=== PATIENT | female | born 1965 | race Caucasian/White ===

== ENCOUNTER 2022-12-31 11:57 | Inpatient (IN) | payer MEDICARE, MEDICAID, SELFPAY ==
[2022-12-31 12:08] VITALS: BP 116/91; BP 148/92; PULSE 96; PULSE 98; RESP 18; TEMP 36.4; O2SAT 96; BMI 25.8
[2022-12-31 12:42] LABS: Appearance Urine Cloudy; Color Urine Yellow; Glucose Urine UA Negative (Negative); Leukocyte Esterase Urine Large (3+) (Negative); Nitrite Urine Negative (Negative); PH 5.5 (5.0-9.0); UMIC TRIGGER UACC YES; Urine Blood Moderate (2+) (Negative); Urine Ketones Negative (Negative); Urine Protein 30 (1+) mg/dL (Neg-Trace)
--- NOTE | 2022-12-31 12:44 | ED_ITS ---
HPI - Psych General Chief Complaint: Psychiatric Symptoms Stated Complaint: DEPRESSED,NI SI,LAST DRANK ETOH TODAY PER EMS Time Seen by Provider: 12/31/22 12:03 Source: patient Mode of arrival: EMS Limitations: no limitations History of Present Illness HPI Narrative: 57 yo female hx of depression, hypothyroidism here with c/o depression, hopelessness, homeless and has been drinking. Was seen at [facility] and [facility] and states that she stayed overnight in ER then left. No SI attempts in past. Came from [place] to be with daughter who has borderline and now daughter is not talking to her. The patient then lost $912.50 from a realtor who was supposed to help her find housing but then never heard back from them. MD complaint: feels depressed, anxiety and alcohol abuse Onset (ago): week(s) Duration: intermittent History of same: Yes Relieving factors: none Exacerbating factors: alcohol Context: recent alcohol abuse and significant life stressor Associated psychiatric symptoms: depression Associated symptoms: denies other symptoms Treatments prior to arrival: none Related Data Home Medications Medication Instructions Recorded Confirmed bupropion HCl 75 mg tablet 75 mg PO BID 12/31/22 12/31/22 levothyroxine 100 mcg tablet 100 mcg PO DAILY 12/31/22 12/31/22 nicotine (polacrilex) 2 mg gum 2 mg buccal Q2H 12/31/22 12/31/22 quetiapine 100 mg tablet 200 mg PO BEDTIME 12/31/22 12/31/22 Allergies Allergy/AdvReac Type Severity Reaction Status Date / Time Unable to Assess Allergy Verified 12/31/22 12:15 Review of Systems 2 Review of Systems: Constitutional : No Fever, No Chills ENT/Mouth : No Ear Pain, No Nasal Congestion, No sore throat Eyes: No Eye Pain, No Swelling, No Redness Cardiovascular : No Chest Pain, No SOB Respiratory : No Cough, No Sputum, No Dyspnea Gastrointestinal : No Nausea, No Vomiting, No Diarrhea, No Hematochezia, No Melena Genitourinary : No Dysuria, No Urinary Frequency, No Hematuria Musculoskeletal : No Myalgias Skin : No Skin Lesions, No rash Neuro : No Weakness, No Numbness, No Paresthesias, No Dizziness, No Headache Psych : positive Anxiety, positive Depression, no SI/HI Heme/Lymph: No Lymphadenopathy Endocrine : No Polyuria, No Polydipsia All other systems reviewed and are negative PMFSH Past Medical History Attestation statement: The following information was validated with the patient. Medical History (Updated 12/31/22 @ 13:07 by Katherine Cabrera DO) Depression Social History Social History (Updated 12/31/22 @ 13:04 by Katherine Cabrera DO) Alcohol intake: current Patient Tobacco Use Status: Current someday Tobacco user Physical Exam 2 Vital Signs: Vital Signs: Last Vital Signs Temp 97.6 F 12/31/22 12:08 Pulse 96 12/31/22 12:08 Resp 18 12/31/22 12:08 BP 116/91 H 12/31/22 12:08 Pulse Ox 96 12/31/22 12:08 O2 Del Method Room Air 12/31/22 12:08 BMI result Body Mass Index 25.8 Appearance: Alert. Oriented X3. No acute distress. Tearful and anxious, ETOH odor Eyes: Pupils equal, round and reactive to light. ENT: Pharynx normal. Neck: Normal inspection. Neck supple. CVS: Normal heart rate and rhythm. Pulses normal. Respiratory: No respiratory distress. Breath sounds normal. Abdomen: Soft and nontender. Skin: Skin warm and dry. Normal skin color. Normal skin turgor. Extremities: No lower extremity edema. No calf ttp Neuro: Oriented X 3. No motor deficit. No sensory deficit. Cn 2-12 intact Course Course Course Narrative: urine contaminated will wait on culture Reevaluation(s) Reevaluation #1: Physician observation started at 134pm. Patient placed in physician observation because the patient needed more time for CARE team to assess the need for psych admission. At the time observation was started the patient's vitals were stable, patient is alert and oriented but anxious Neuro: nonfocal, CV RRR, Lungs clear Medical Decision Making Medical Decision Making MDM Narrative: 57 yo female with PMH of depression / ETOH use here with poor social situation denies any medical complaints will obtain labs and consult CARE team. Differential Diagnosis Differential Diagnoses: The differential diagnosis associated with the presentation includes depression, ETOH abuse Admission/Observation Consideration of admission/observation: Escalation of care including admission/observation considered observe until cleared by CARE team Consult Healthcare Provider Management of the patient was discussed with: Behavioral Health Provider Lab Data [facility] Lab Attestation statement: I reviewed the patient's lab results. 12/31/22 12:56 12/31/22 12:56 Labs: Lab Results 12/31/22 12/31/22 Range/Units 12:26 12:56 WBC 3.4 L (4.8-10.8) X10*3/uL RBC 3.43 L (4.20-5.50) X10*6/uL Hgb 11.5 L (12.0-16.0) g/dl Hct 34.2 L (37.0-47.0) % MCV 99.7 H (80.0-98.0) fL MCH 33.5 H (27.0-33.0) pg MCHC 33.6 (31.0-35.0) g/dl RDW 13.3 (11.0-16.0) % Plt Count 132 L (160-400) X10*3/uL MPV 10.0 (9.4-12.3) fL Immature Gran % (Auto) 0.3 (0.0-0.4) % Neut % (Auto) 50.5 (45-73) % Lymph % (Auto) 39.8 (20-40) % [place] % (Auto) 9.1 (2-11) % Eos % (Auto) 0.0 (0-4) % Baso % (Auto) 0.3 (0-2) % Lymph # (Auto) 1.4 (1.2-4.9) X10*3/uL [place] # (Auto) 0.3 (0.1-1.2) X10*3/uL Eos # (Auto) 0.0 (0.0-0.4) X10*3/uL Baso # (Auto) 0.0 (0.0-0.2) X10*3/uL Abs Immat Gran (auto) 0.01 (0.00-0.03) X10*3/uL Absolute Neuts (auto) 1.7 L (2.0-8.3) x10*3/uL Absolute Nucleated RBC 0.000 (0.0-0.012) X10*3/uL Nucleated RBC % (auto) 0.0 (0.0-0.2) /100WBC Sodium 143 (135-145) mmol/L Potassium 3.7 (3.3-5.1) mmol/L Chloride 104 (96-108) mmol/L Carbon Dioxide 25 (22-29) mmol/L Anion Gap 18 (12-20) BUN 14 (9-16) mg/dL Creatinine 0.74 (0.5-1.4) mg/dL Estim Creat Clear Calc 85.5 Estimated GFR > 60 Random Glucose 80 (60-115) mg/dL Calcium 9.9 (8.4-10.2) mg/dL Total Bilirubin 0.5 (0.0-1.0) mg/dL AST 103 H (5-31) U/L ALT 91 H (0-31) U/L Alkaline Phosphatase 84 (39-117) U/L Total Protein 8.1 H (6.5-8.0) g/dL Albumin 4.6 (3.5-5.0) g/dL Urine Color Yellow Urine Appearance Cloudy Urine pH 5.5 (5.0-9.0) Ur Specific [place] 1.010 (1.005-1.025) Urine Protein 30 (1+) H (Neg-Trace) mg/dL Urine Glucose (UA) Negative (Negative) mg/dL Urine Ketones Negative (Negative) mg/dL Urine Blood Moderate (2+) H (Negative) Urine Nitrite Negative (Negative) Ur Leukocyte Esterase Large (3+) H (Negative) Urine RBC 6-10 H (0-2) /HPF Urine WBC 21-50 H (0-5) /HPF Ur Squamous Epith Cells 11-20 (0-2) /HPF Urine Bacteria 1+ (None Seen) Hyaline Casts 6-10 (0-2) /LPF Salicylates < 5.0 L (15-30) mg/dL Urine Opiates Screen Not Detected (Not Detect) Urine Fentanyl Screen Not Detected (Not Detect) Acetaminophen < 17 (<30) mcg/mL Ur Barbiturates Screen Not Detected (Not Detect) Ur Phencyclidine Scrn Not Detected (Not Detect) Ur Amphetamines Screen Not Detected (Not Detect) U Benzodiazepines Scrn Not Detected (Not Detect) Urine Cocaine Screen Not Detected (Not Detect) U Marijuana (THC) Screen Not Detected (Not Detect) Ethyl Alcohol 190 mg/dL COVID-19 ([place]) Negative (Negative) COVID-19 Clin Com See Note Independent Historian Clinical information obtained from an independent historian. History obtained from or confirmed by: EMS Social Determinants Patient?s care significantly limited by Social Determinants of Health including: Inadequate housing, Low income, Problems related to primary support group and Unemployment Discharge Plan Discharge Clinical Impression: Alcohol abuse Depression Qualifiers: Depression Type: unspecified Qualified Code(s): F32.A - Depression, unspecified Patient Disposition: Still a Patient Prescriptions: No Action quetiapine 100 mg Tablet 200 mg PO BEDTIME levothyroxine 100 mcg Tablet 100 mcg PO DAILY bupropion HCl 75 mg Tablet 75 mg PO BID Rx Instructions: QAM and afternoon nicotine (polacrilex) 2 mg Gum 2 mg BUCCAL Q2H Interventions: [place]-Suicide Risk Severity Scale Last Done: 12/31/22 13:27
[2022-12-31 12:46] LABS: COVID-19 Test Negative (Negative); IDNOW Serial# BCCEAD1C
[2022-12-31 13:00] LABS: Bacteria Urine 1+ (None Seen); UACC Culture Trigger YES; WBC Urine 21-50 /HPF (0-5)
[2022-12-31 13:03] LABS: MANUAL DIFF FLAG NO
[2022-12-31 13:07] LABS: Amphetamine Screen Urine Not Detected (Not Detect); Barbiturates, Urine Not Detected (Not Detect); Benzodiazepines Screen Urine Not Detected (Not Detect); Cannabinoid Screen Urine Not Detected (Not Detect); Cocaine Screen Urine Not Detected (Not Detect); Fentanyl, urine Not Detected (Not Detect); Opiate Screen Urine Not Detected (Not Detect); Phencyclidine Screen Urine Not Detected (Not Detect)
[2022-12-31 13:08] LABS: Basophils Percent Auto 0.3 % (0-2); Hematocrit 34.2 % (37.0-47.0); Hemoglobin 11.5 g/dl (12.0-16.0); Imm Gran Abs Auto 0.01 X10*3/uL (0.00-0.03); Imm Gran Pct Auto 0.3 % (0.0-0.4); Lymphocytes Absolute Auto 1.4 X10*3/uL (1.2-4.9); Lymphocytes Percent Auto 39.8 % (20-40); Mean Corpuscular HGB Conc 33.6 g/dl (31.0-35.0); Mean Corpuscular Hemoglobin 33.5 pg (27.0-33.0); Mean Corpuscular Volume 99.7 fL (80.0-98.0); Monocytes Absolute Auto 0.3 X10*3/uL (0.1-1.2); Monocytes Percent Auto 9.1 % (2-11); Neutrophils Absolute Auto 1.7 x10*3/uL (2.0-8.3); Neutrophils Percent Auto 50.5 % (45-73); Platelet Count 132 X10*3/uL (160-400); Red Blood Count 3.43 X10*6/uL (4.20-5.50); Red Cell Distribution Width 13.3 % (11.0-16.0); White Blood Count 3.4 X10*3/uL (4.8-10.8)
--- NOTE | 2022-12-31 13:20 | PC.NURSE ---
Bailey was BIBA after feeling hopeless this morning in the context of ETOH and homelessness. Bailey reports she came here from [place] to help her daughter who has significant mental health struggles but her daughter is not currently speaking with her. Bailey denies a plan or intent but does endorse vague SI. Several bags and other belongings placed in locker 2. Bailey reports she hasn't taken her medication in a few days . Appetite is good.
[2022-12-31 13:27] LABS: Alanine Aminotransferase 91 U/L (0-31); Albumin Level 4.6 g/dL (3.5-5.0); Alkaline Phosphatase 84 U/L (39-117); Anion Gap 18 (12-20); Aspartate Amino Transferase 103 U/L (5-31); Bilirubin Total 0.5 mg/dL (0.0-1.0); Blood Urea Nitrogen 14 mg/dL (9-16); Calcium 9.9 mg/dL (8.4-10.2); Carbon Dioxide 25 mmol/L (22-29); Chloride 104 mmol/L (96-108); Creatinine Clr Calc Pharmacy 85.5; Estimated Glomerular Filt Rate > 60; Ethanol 190 mg/dL; Glucose Random 80 mg/dL (60-115); Potassium 3.7 mmol/L (3.3-5.1); Sodium 143 mmol/L (135-145); Total Protein 8.1 g/dL (6.5-8.0)
[2022-12-31 13:28] LABS: Acetaminophen LAB < 17 mcg/mL (<30); Salicylate < 5.0 mg/dL (15-30)
[2022-12-31 13:45] LABS: TSH reflex Free T4 0.25 uIU/mL (0.32-4.0)
[2022-12-31 14:46] LABS: Free T4 (Free Thyroxine) 1.38 ng/dL (0.71-1.85)
[2022-12-31] MEDS: Nicotine Polacrilex 2 MG GUM BUCCAL ×2 (17:28→19:39)
[2022-12-31 18:40] VITALS: BP 173/88; PULSE 107; RESP 20; TEMP 36.3; O2SAT 100
[2022-12-31] MEDS: LORazepam 1 MG TABLET 2 MG PO (19:19)
[2022-12-31] MEDS: QUEtiapine Fumarate 200 MG TABLET PO (20:15)
--- NOTE | 2023-01-01 05:23 | PC.NURSE ---
Patient slept through the night, no distress observed/reported, Ativan 2 mg PO for comfort, patient is asymptomatic of withdrawal, medication compliant, disposition per care team is section 12 inpatient bed search, VSS, labs completed/resulted, behavior non concerning, will continue to monitor.
[2023-01-01] MEDS: Levothyroxine Sodium 100 MCG TABLET PO (06:08)
[2023-01-01 06:19] VITALS: BP 130/77; PULSE 91; RESP 17; TEMP 36.6; O2SAT 98
--- NOTE | 2023-01-01 07:54 | ECG_ITS ---
Test Reason : QTC INTERVAL Blood Pressure : / mmHG Vent. Rate : 088 BPM Atrial Rate : 088 BPM P-R Int : 146 ms QRS Dur : 088 ms QT Int : 362 ms P-R-T Axes : 055 027 055 degrees QTc Int : 438 ms Normal sinus rhythm Normal ECG No previous ECGs available Referred By: Harjit Rothman Electronically Signed By:LYUDMILA JEFFRIES
[2023-01-01 09:25] VITALS: BP 121/85; PULSE 111; RESP 16; TEMP 37.1; O2SAT 99
[2023-01-01] MEDS: LORazepam 1 MG TABLET 2 MG PO (09:34)
[2023-01-01] MEDS: buPROPion HCL 75 MG TABLET PO (09:35)
--- NOTE | 2023-01-01 11:04 | MHC.CARE ---
Clinician received call back from Meg Nielsen [phone] cell/office [phone], she reports she works for [employer] and does [facility] eligibility applications. She reports application has been completed,however she needs to met with pt to have her sign paperwork. She is willing to come to inpatient unit to do this with pt once she is placed. Clinician informed her that BRIAN was signed for [employer] and faxed over and BRIAN was placed in pts chart in ED.
[2023-01-01 15:05] VITALS: BP 110/80; PULSE 120; RESP 20; TEMP 36.8; O2SAT 98
[2023-01-01 15:43] VITALS: BP 106/74; PULSE 115; RESP 20; O2SAT 97
--- NOTE | 2023-01-01 16:20 | PHA.MEDREC ---
Pharmacy Consult ? Medication Reconciliation Pharmacy has completed the medication reconciliation. Reviewed med rec done by nursing
--- NOTE | 2023-01-01 16:21 | PC.NURSE ---
Bailey has spent most of the shift in her room resting. CIWA 7 at 0930 and medicated with 2mg Lorazepam. 1500 dose of buproprion held per PT. HR in AM 111, in afternoon HR 128 on recheck thirty minutes later HR was 115. Denies any other withdrawal symptoms when assessed this afternoon. Bailey has eaten 100% of her breakfast and lunch. No behavioral concerns noted. Bailey denies SI/HI this morning but stated she may not be safe outside the hospital.
[2023-01-01] MEDS: Nicotine Polacrilex 2 MG GUM 4 MG BUCCAL ×2 (16:41→19:20)
[2023-01-01] MEDS: Gabapentin 300 MG CAPSULE PO ×2 (16:42→21:03)
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
[2023-01-01 19:50] VITALS: BP 98/58; PULSE 95; RESP 16; TEMP 36.7; O2SAT 95
[2023-01-01] MEDS: QUEtiapine Fumarate 200 MG TABLET PO (21:02)
[2023-01-02] MEDS: Levothyroxine Sodium 100 MCG TABLET PO (06:33)
[2023-01-02 07:52] LABS: Alanine Aminotransferase 62 U/L (0-31); Albumin Level 3.6 g/dL (3.5-5.0); Alkaline Phosphatase 80 U/L (39-117); Aspartate Amino Transferase 65 U/L (5-31); Bilirubin Direct 0.2 mg/dL (0.0-0.5); Bilirubin Total 0.6 mg/dL (0.0-1.0); Total Protein 6.8 g/dL (6.5-8.0)
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
[2023-01-02 10:08] VITALS: BP 105/62; PULSE 70; TEMP 36.3; O2SAT 97
[2023-01-02] MEDS: buPROPion HCL 75 MG TABLET PO ×2 (10:08→15:30)
[2023-01-02] MEDS: Gabapentin 300 MG CAPSULE PO (10:08)
[2023-01-02 20:25] VITALS: BP 124/83; PULSE 115; RESP 19; TEMP 36.2; O2SAT 96
[2023-01-02] MEDS: QUEtiapine Fumarate 200 MG TABLET PO (21:07)
[2023-01-03] MEDS: Levothyroxine Sodium 100 MCG TABLET PO (06:34)
[2023-01-03 08:30] VITALS: BP 123/68; PULSE 71; RESP 16; TEMP 36.2; O2SAT 98
--- NOTE | 2023-01-03 09:17 | HO.PSYCHPN ---
Subjective Subjective Date of Service: 01/03/23 Reason For Visit: Depression Subjective Notes: Conditional Voluntary Interim History: Reviewed in team and . Patient presents calm, cooperative, less rapid speech. Continues circumstantial and long winded in responses. She reports feeling anxious, depressed and hopeless d/t being worried about what's next after the hospital . Patient stated, I know my drinking is a problem but I need 1:1 therapy to fix the root cause of my drinking . Patient reports she does not want us speaking with her daughter. Pt reports feeling hopeful about the new medication . Medication Compliance: Yes Side effects from medications: No Attending Groups: Yes Review of Systems Constitutional: Reports as per HPI Eyes: Reports as per HPI Reports as per HPI Cardiovascular: Reports as per HPI Respiratory: Reports as per HPI Gastrointestinal: Reports as per HPI Genitourinary: Reports as per HPI Musculoskeletal: Reports as per HPI Skin/Breast: Reports as per HPI Reports as per HPI Psychiatric: Reports as per HPI Endocrine: Reports as per HPI Hematologic/Lymphatic: Reports as per HPI Allergic/Immunologic: Reports as per HPI Mental Status Exam Mental Status Exam Narrative: Pt is alert and oriented; behavior is cooperative and calm; dressed in casual attire; mood is described as depressed,anxious,hopeless ; eye contact appropriate; Speech is less rapid, and pressured; no psychomotor agitation/retardation present; thought process is organized and goal directed; Thought content is circumstantial; otherwise pertinent to relevant topics and without any delusional content, paranoid ideations or grandiosity; denies SI/HI. There is no evidence of perceptual disturbance. Patients insight and judgment are poor. Diagnostics Vital Signs (24Hr): Vital Signs - 24 hr 01/02/23 10:08 01/02/23 20:25 Temperature 97.3 F 97.2 F Pulse Rate 70 115 H Respiratory Rate 19 Blood Pressure 105/62 124/83 Pulse Oximetry 97 96 Oxygen Delivery Method Room Air Room Air BMI result Body Mass Index 25.8 Labs 12/31/22 12:56 12/31/22 12:56 Labs: Laboratory Results - last 48 hr 01/02/23 07:16 Hold Purple Top SEE NOTE Total Bilirubin 0.6 Direct Bilirubin 0.2 AST 65 H ALT 62 H Alkaline Phosphatase 80 Total Protein 6.8 Albumin 3.6 Medications Medications Current Medications Acetaminophen (Acetaminophen 325 Mg Tablet) 650 mg PO Q6H PRN PRN Reason: Headache/Pain Mild Scale (1-3) Al Hydroxide/Mg Hydroxide (Magnesium Hydrox/Alum Hydrox 30 Ml Oral.Susp) 30 ml PO Q6H PRN PRN Reason: Heartburn/Nausea Cariprazine (Cariprazine Hcl 1.5 Mg Capsule) 1.5 mg PO DAILY [facility] Last Admin: 01/03/23 08:40 Dose: 1.5 mg Gabapentin (Gabapentin 300 Mg Capsule) 300 mg PO TID [facility] Last Admin: 01/03/23 08:40 Dose: 300 mg Levothyroxine Sodium (Levothyroxine Sodium 100 Mcg Tablet) 100 mcg PO DAILY@0600 [facility] Last Admin: 01/03/23 06:34 Dose: 100 mcg Lorazepam (Lorazepam 1 Mg Tablet) 1 mg PO Q2H PRN PRN Reason: CIWA 6-10 Lorazepam (Lorazepam 1 Mg Tablet) 2 mg PO Q2H PRN PRN Reason: CIWA 11 and above Magnesium Hydroxide (Milk Of Magnesia 30 Ml Oral.Susp) 30 ml PO DAILY PRN PRN Reason: Constipation Nicotine Polacrilex (Nicotine Polacrilex 2 Mg Gum) 4 mg BUCCAL Q2H PRN PRN Reason: Nicotine Cravings Last Admin: 01/03/23 09:07 Dose: 4 mg Quetiapine Fumarate (Quetiapine Fumarate 200 Mg Tablet) 200 mg PO BEDTIME [facility] Last Admin: 01/02/23 21:07 Dose: 200 mg Quetiapine Fumarate (Quetiapine Fumarate 25 Mg Tablet) 25 mg PO BID PRN PRN Reason: Anxiety Trazodone HCl (Trazodone Hcl 50 Mg Tablet) 50 mg PO BEDTIME MRX1 PRN PRN Reason: Insomnia Last Admin: 01/02/23 23:28 Dose: 50 mg Allergies Allergies Allergy/AdvReac Type Severity Reaction Status Date / Time No Known Allergies Allergy Verified 12/31/22 18:03 Assessment & Plan Assessment & Plan (1) Bipolar 1 disorder: Status: Acute Code(s): F31.9 - Bipolar disorder, unspecified (2) PTSD (post-traumatic stress disorder): Status: Acute Code(s): F43.10 - Post-traumatic stress disorder, unspecified (3) Alcohol abuse: Status: Acute Code(s): F10.10 - Alcohol abuse, uncomplicated Plan Patient is a 57 year old female with hx of Bipolar d/p, PTSD and ETOH abuse who arrived via EMS to [facility] [place] d/t passive suicidal ideation secondary to increased depressive symptoms from homelessness and alcohol use. Plan: CV 15 minute safety checks CIWA DC Wellbutrin Start: Vraylar 1.5mg PO daily Seroquel 25mg PO BID PRN Obtain collateral Referral to outpatient substance abuse program? Referral to domestic violence program? 01/03: Patient presents calm, cooperative, less rapid speech. Continues circumstantial and long winded in responses. She reports feeling anxious, depressed and hopeless d/t being worried about what's next after the hospital . Patient stated, I know my drinking is a problem but I need 1:1 therapy to fix the root cause of my drinking . Patient reports she does not want us speaking with her daughter. Pt reports feeling hopeful about the new medication . Vraylar increased to 3mg PO daily. Patient educated on: diagnosis, medication risk/benefits, substance abuse and therapeutic strategies Informed Consent: understands Reason for continued inpatient stay Substantial Risk for: med/psych decompensation Time Spent With Patient Time: Total time managing care of this patient today _30___ minutes.
[2023-01-03 19:25] VITALS: BP 118/75; PULSE 94; RESP 18; TEMP 36.4; O2SAT 95
[2023-01-03] MEDS: QUEtiapine Fumarate 200 MG TABLET PO (21:13)
--- NOTE | 2023-01-03 23:07 | PC.NURSE ---
This nurse informed Maura Kilgore of urine abnormal results. Patient not reporting any discomfort at this time. Urine culture is pending.
--- NOTE | 2023-01-04 05:09 | PC.NURSE ---
At 0400, patient resting in bed. No signs of sweating or distress. RR-14. Nurse did not wake patient for full CIWA assessment as patient benoit not scored in last 24 hours.
[2023-01-04] MEDS: Levothyroxine Sodium 100 MCG TABLET PO (06:31)
[2023-01-04 08:00] VITALS: BP 131/81; PULSE 100; RESP 16; TEMP 36.4; O2SAT 98
--- NOTE | 2023-01-04 12:18 | HO.PSYCHPN ---
Subjective Subjective Date of Service: 01/04/23 Reason For Visit: Depression Interim History: Reviewed with RN. Reports doing well other than reporting dry skin on the right side of her neck. She has been cooperative and pleasant on the unit. She is worried about her upcoming life situation.She is tolerating Vraylar well without side effects. Denies SI/HI/AVH. Review of Systems Review of Systems Constitutional : No Fever, No Chills ENT/Mouth : No Ear Pain, No Nasal Congestion, No sore throat Eyes: No Eye Pain, No Swelling, No Redness Cardiovascular : No Chest Pain, No SOB Respiratory : No Cough, No Sputum, No Dyspnea Gastrointestinal : No Nausea, No Vomiting, No Diarrhea, No Hematochezia, No Melena Genitourinary : No Dysuria, No Urinary Frequency, No Hematuria Musculoskeletal : No Myalgias Skin : No Skin Lesions, No rash Neuro : No Weakness, No Numbness, No Paresthesias, No Dizziness, No Headache Psych : positive Anxiety, positive Depression, no SI/HI Heme/Lymph: No Lymphadenopathy Endocrine : No Polyuria, No Polydipsia All other systems reviewed and are negative Constitutional: Reports as per HPI Eyes: Reports as per HPI Reports as per HPI Cardiovascular: Reports as per HPI Respiratory: Reports as per HPI Gastrointestinal: Reports as per HPI Musculoskeletal: Reports as per HPI Skin/Breast: Reports as per HPI Reports as per HPI Psychiatric: Reports as per HPI Endocrine: Reports as per HPI Hematologic/Lymphatic: Reports as per HPI Allergic/Immunologic: Reports as per HPI Mental Status Exam Mental Status Exam Narrative: Pt is alert and oriented; behavior is cooperative and calm; dressed in casual attire; mood is described as depressed,anxious,hopeless ; eye contact appropriate; Speech is less rapid, and pressured; no psychomotor agitation/retardation present; thought process is organized and goal directed; Thought content is circumstantial; otherwise pertinent to relevant topics and without any delusional content, paranoid ideations or grandiosity; denies SI/HI. There is no evidence of perceptual disturbance. Patients insight and judgment are poor. Diagnostics Vital Signs (24Hr): Vital Signs - 24 hr 01/03/23 19:25 01/04/23 08:00 Temperature 97.6 F 97.5 F Pulse Rate 94 100 Respiratory Rate 18 16 Blood Pressure 118/75 131/81 Pulse Oximetry 95 98 Oxygen Delivery Method Room Air Room Air BMI result Body Mass Index 25.8 Labs 12/31/22 12:56 12/31/22 12:56 Labs: Laboratory Results - last 48 hr 01/03/23 20:19 Urine Color Yellow Urine Appearance Clear Urine pH 8.0 Ur Specific [place] 1.010 Urine Protein Negative Urine Glucose (UA) Negative Urine Ketones Negative Urine Blood Negative Urine Nitrite Negative Ur Leukocyte Esterase Moderate (2+) H Urine RBC 0-2 Urine WBC 6-10 H Ur Squamous Epith Cells 0-2 Urine Bacteria None Seen Hyaline Casts 0-2 Medications Medications Current Medications Acetaminophen (Acetaminophen 325 Mg Tablet) 650 mg PO Q6H PRN PRN Reason: Headache/Pain Mild Scale (1-3) Al Hydroxide/Mg Hydroxide (Magnesium Hydrox/Alum Hydrox 30 Ml Oral.Susp) 30 ml PO Q6H PRN PRN Reason: Heartburn/Nausea Cariprazine (Cariprazine Hcl 3 Mg Capsule) 3 mg PO DAILY [facility] Last Admin: 01/04/23 08:44 Dose: 3 mg Gabapentin (Gabapentin 300 Mg Capsule) 300 mg PO TID [facility] Last Admin: 01/04/23 08:44 Dose: 300 mg Levothyroxine Sodium (Levothyroxine Sodium 100 Mcg Tablet) 100 mcg PO DAILY@0600 [facility] Last Admin: 01/04/23 06:31 Dose: 100 mcg Lorazepam (Lorazepam 1 Mg Tablet) 1 mg PO Q2H PRN PRN Reason: CIWA 6-10 Lorazepam (Lorazepam 1 Mg Tablet) 2 mg PO Q2H PRN PRN Reason: CIWA 11 and above Magnesium Hydroxide (Milk Of Magnesia 30 Ml Oral.Susp) 30 ml PO DAILY PRN PRN Reason: Constipation Nicotine Polacrilex (Nicotine Polacrilex 2 Mg Gum) 4 mg BUCCAL Q2H PRN PRN Reason: Nicotine Cravings Last Admin: 01/04/23 09:16 Dose: 4 mg Quetiapine Fumarate (Quetiapine Fumarate 200 Mg Tablet) 200 mg PO BEDTIME [facility] Last Admin: 01/03/23 21:13 Dose: 200 mg Quetiapine Fumarate (Quetiapine Fumarate 25 Mg Tablet) 25 mg PO BID PRN PRN Reason: Anxiety Trazodone HCl (Trazodone Hcl 50 Mg Tablet) 50 mg PO BEDTIME MRX1 PRN PRN Reason: Insomnia Last Admin: 01/02/23 23:28 Dose: 50 mg Allergies Allergies Allergy/AdvReac Type Severity Reaction Status Date / Time No Known Allergies Allergy Verified 12/31/22 18:03 Assessment & Plan Assessment & Plan (1) Bipolar 1 disorder: Status: Acute Code(s): F31.9 - Bipolar disorder, unspecified (2) PTSD (post-traumatic stress disorder): Status: Acute Code(s): F43.10 - Post-traumatic stress disorder, unspecified (3) Alcohol abuse: Status: Acute Code(s): F10.10 - Alcohol abuse, uncomplicated Plan Patient is a 57 year old female with hx of Bipolar d/p, PTSD and ETOH abuse who arrived via EMS to [facility] [place] ER d/t passive suicidal ideation secondary to increased depressive symptoms from homelessness and alcohol use. Plan: CV 15 minute safety checks CIWA DC Wellbutrin Start: Vraylar 1.5mg PO daily Seroquel 25mg PO BID PRN Obtain collateral Referral to outpatient substance abuse program? Referral to domestic violence program? 01/03: Patient presents calm, cooperative, less rapid speech. Continues circumstantial and long winded in responses. She reports feeling anxious, depressed and hopeless d/t being worried about what's next after the hospital . Patient stated, I know my drinking is a problem but I need 1:1 therapy to fix the root cause of my drinking . Patient reports she does not want us speaking with her daughter. Pt reports feeling hopeful about the new medication . Vraylar increased to 3mg PO daily. 01/04: Continue current treatment plan. Reason for continued inpatient stay Substantial Risk for: harm to self, inability to function and rapid decompensation Time Spent With Patient Time: Total time managing care of this patient today ____ minutes.
[2023-01-04 19:40] VITALS: BP 145/84; PULSE 96; RESP 18; TEMP 36.3; O2SAT 100
[2023-01-04] MEDS: QUEtiapine Fumarate 200 MG TABLET PO (21:43)
--- NOTE | 2023-01-05 00:04 | PC.NURSE ---
Bailey is currently sleeping. No signs of withdrawal noted. No fidget movements or sweating observed. RR-14 Did not wake patient for full assessment as patient has not scored in last 36 hours.
--- NOTE | 2023-01-05 04:20 | PC.NURSE ---
At 0400, Bailey was asleep with no visible signs of distress. RR-14. Nurse did not wake patient for full CIWA assessment. Patient has not been scoring over the past 36 hours.
[2023-01-05 06:00] VITALS: BP 120/84; PULSE 121; RESP 16; TEMP 36.2; O2SAT 99
[2023-01-05] MEDS: Levothyroxine Sodium 100 MCG TABLET PO (06:31)
--- NOTE | 2023-01-05 19:09 | HO.PSYCHPN ---
Subjective Subjective Date of Service: 01/05/23 Reason For Visit: Depression Interim History: Reviewed with RN. She reported she had some slurring this morning but resolved on it's own. She denied any weakness, numbness, vision problems, headaches. When seen by this examiner she had no symptoms. Discussed lowering her Vraylar to 1.5 mg in case this was a side effect. She has not been scoring on her CIWA. She denies any withdrawals. She was pleasant, cooperative, socializing with peers. She is visible on the unit. Denies SI/HI/AVH. Review of Systems Review of Systems Constitutional : No Fever, No Chills ENT/Mouth : No Ear Pain, No Nasal Congestion, No sore throat Eyes: No Eye Pain, No Swelling, No Redness Cardiovascular : No Chest Pain, No SOB Respiratory : No Cough, No Sputum, No Dyspnea Gastrointestinal : No Nausea, No Vomiting, No Diarrhea, No Hematochezia, No Melena Genitourinary : No Dysuria, No Urinary Frequency, No Hematuria Musculoskeletal : No Myalgias Skin : No Skin Lesions, No rash Neuro : No Weakness, No Numbness, No Paresthesias, No Dizziness, No Headache Psych : positive Anxiety, positive Depression, no SI/HI Heme/Lymph: No Lymphadenopathy Endocrine : No Polyuria, No Polydipsia All other systems reviewed and are negative Constitutional: Reports as per HPI Eyes: Reports as per HPI Reports as per HPI Cardiovascular: Reports as per HPI Respiratory: Reports as per HPI Gastrointestinal: Reports as per HPI Musculoskeletal: Reports as per HPI Skin/Breast: Reports as per HPI Reports as per HPI Psychiatric: Reports as per HPI Endocrine: Reports as per HPI Hematologic/Lymphatic: Reports as per HPI Allergic/Immunologic: Reports as per HPI Mental Status Exam Mental Status Exam Narrative: Pt is alert and oriented; behavior is cooperative and calm; dressed in casual attire; mood is described as depressed,anxious,hopeless ; eye contact appropriate; Speech is less rapid, and pressured; no psychomotor agitation/retardation present; thought process is organized and goal directed; Thought content is circumstantial; otherwise pertinent to relevant topics and without any delusional content, paranoid ideations or grandiosity; denies SI/HI. There is no evidence of perceptual disturbance. Patients insight and judgment are poor. Diagnostics Vital Signs (24Hr): Vital Signs - 24 hr 01/04/23 19:40 10/08/23 06:00 Temperature 97.4 F 97.2 F Pulse Rate 96 121 H Respiratory Rate 18 16 Blood Pressure 145/84 H 120/84 Pulse Oximetry 100 99 Oxygen Delivery Method Room Air Room Air BMI result Body Mass Index 25.8 Labs 12/31/22 12:56 12/31/22 12:56 Labs: Laboratory Results - last 48 hr 01/03/23 20:19 Urine Color Yellow Urine Appearance Clear Urine pH 8.0 Ur Specific [place] 1.010 Urine Protein Negative Urine Glucose (UA) Negative Urine Ketones Negative Urine Blood Negative Urine Nitrite Negative Ur Leukocyte Esterase Moderate (2+) H Urine RBC 0-2 Urine WBC 6-10 H Ur Squamous Epith Cells 0-2 Urine Bacteria None Seen Hyaline Casts 0-2 Medications Medications Current Medications Acetaminophen (Acetaminophen 325 Mg Tablet) 650 mg PO Q6H PRN PRN Reason: Headache/Pain Mild Scale (1-3) Al Hydroxide/Mg Hydroxide (Magnesium Hydrox/Alum Hydrox 30 Ml Oral.Susp) 30 ml PO Q6H PRN PRN Reason: Heartburn/Nausea Cariprazine (Cariprazine Hcl 1.5 Mg Capsule) 1.5 mg PO DAILY [facility] Gabapentin (Gabapentin 300 Mg Capsule) 300 mg PO TID [facility] Last Admin: 01/05/23 14:09 Dose: 300 mg Levothyroxine Sodium (Levothyroxine Sodium 100 Mcg Tablet) 100 mcg PO DAILY@0600 [facility] Last Admin: 01/05/23 06:31 Dose: 100 mcg Lorazepam (Lorazepam 1 Mg Tablet) 1 mg PO Q2H PRN PRN Reason: CIWA 6-10 Lorazepam (Lorazepam 1 Mg Tablet) 2 mg PO Q2H PRN PRN Reason: CIWA 11 and above Magnesium Hydroxide (Milk Of Magnesia 30 Ml Oral.Susp) 30 ml PO DAILY PRN PRN Reason: Constipation Nicotine Polacrilex (Nicotine Polacrilex 2 Mg Gum) 4 mg BUCCAL Q2H PRN PRN Reason: Nicotine Cravings Last Admin: 01/05/23 19:00 Dose: 4 mg Quetiapine Fumarate (Quetiapine Fumarate 200 Mg Tablet) 200 mg PO BEDTIME [facility] Last Admin: 01/04/23 21:43 Dose: 200 mg Quetiapine Fumarate (Quetiapine Fumarate 25 Mg Tablet) 25 mg PO BID PRN PRN Reason: Anxiety Trazodone HCl (Trazodone Hcl 50 Mg Tablet) 50 mg PO BEDTIME MRX1 PRN PRN Reason: Insomnia Last Admin: 01/02/23 23:28 Dose: 50 mg Allergies Allergies Allergy/AdvReac Type Severity Reaction Status Date / Time No Known Allergies Allergy Verified 12/31/22 18:03 Assessment & Plan Assessment & Plan (1) Bipolar 1 disorder: Status: Acute Code(s): F31.9 - Bipolar disorder, unspecified (2) PTSD (post-traumatic stress disorder): Status: Acute Code(s): F43.10 - Post-traumatic stress disorder, unspecified (3) Alcohol abuse: Status: Acute Code(s): F10.10 - Alcohol abuse, uncomplicated Plan Patient is a 57 year old female with hx of Bipolar d/p, PTSD and ETOH abuse who arrived [place] EMS [place] [facility] d/t passive suicidal ideation secondary to increased depressive symptoms from homelessness and alcohol use. Plan: CV 15 minute safety checks CIWA DC Wellbutrin Start: Vraylar 1.5mg PO daily Seroquel 25mg PO BID PRN Obtain collateral Referral to outpatient substance abuse program? Referral to domestic violence program? 01/03: Patient presents calm, cooperative, less rapid speech. Continues circumstantial and long winded in responses. She reports feeling anxious, depressed and hopeless d/t being worried about what's next after the hospital . Patient stated, I know my drinking is a problem but I need 1:1 therapy to fix the root cause of my drinking . Patient reports she does not want us speaking with her daughter. Pt reports feeling hopeful about the new medication . Vraylar increased to 3mg PO daily. 01/04: Continue current treatment plan. 01/05: Lower Vraylar to 1.5 mg daily. DC CIWA. Reason for continued inpatient stay Substantial Risk for: inability to function and rapid decompensation Time Spent With Patient Time: Total time managing care of this patient today ____ minutes.
[2023-01-05 19:40] VITALS: BP 131/85; PULSE 113; RESP 16; TEMP 36.4; O2SAT 100
[2023-01-05] MEDS: QUEtiapine Fumarate 200 MG TABLET PO (20:58)
[2023-01-06 07:47] VITALS: BP 109/71; PULSE 91; O2SAT 99
--- NOTE | 2023-01-06 11:43 | HO.PSYCHPN ---
Subjective Subjective Date of Service: 01/06/23 Reason For Visit: Depression Subjective Notes: Conditional Voluntary Interim History: Patient was seen and discussed in rounds today. Records and plans were reviewed. She has been social, more organized. She is medication compliant. No anxiety or depression. Several questions about Vraylar discussed. Questions about ECT discussed. She is requesting to go back on Claritin which was ordered. She also states that she was on Lipitor prior to coming here and 10 mg will be prescribed. Medication Compliance: Yes Side effects from medications: No Attending Groups: Yes Review of Systems Review of Systems No neurological signs and symptoms Yes all other systems are reviewed and are negative Mental Status Exam Mental Status Exam Narrative: In today's visit she is alert, oriented and pleasant. Normal speech (is not slurred clothes), good eye contact. Affect is appropriate and constricted. No signs of psychosis. No SI. Cognitively intact. Judgment is intact Diagnostics Vital Signs (24Hr): Vital Signs - 24 hr 01/05/23 19:40 01/06/23 07:47 Temperature 97.5 F Pulse Rate 113 H 91 Respiratory Rate 16 Blood Pressure 131/85 109/71 Pulse Oximetry 100 99 Oxygen Delivery Method Room Air Room Air BMI result Body Mass Index 25.8 Labs 12/31/22 12:56 12/31/22 12:56 Medications Medications Current Medications Acetaminophen (Acetaminophen 325 Mg Tablet) 650 mg PO Q6H PRN PRN Reason: Headache/Pain Mild Scale (1-3) Al Hydroxide/Mg Hydroxide (Magnesium Hydrox/Alum Hydrox 30 Ml Oral.Susp) 30 ml PO Q6H PRN PRN Reason: Heartburn/Nausea Cariprazine (Cariprazine Hcl 1.5 Mg Capsule) 1.5 mg PO DAILY [facility] Last Admin: 01/06/23 08:42 Dose: 1.5 mg Gabapentin (Gabapentin 300 Mg Capsule) 300 mg PO TID [facility] Last Admin: 01/06/23 08:42 Dose: 300 mg Levothyroxine Sodium (Levothyroxine Sodium 100 Mcg Tablet) 100 mcg PO DAILY@0600 [facility] Last Admin: 01/06/23 06:24 Dose: 100 mcg Lorazepam (Lorazepam 1 Mg Tablet) 1 mg PO Q2H PRN PRN Reason: CIWA 6-10 Lorazepam (Lorazepam 1 Mg Tablet) 2 mg PO Q2H PRN PRN Reason: CIWA 11 and above Magnesium Hydroxide (Milk Of Magnesia 30 Ml Oral.Susp) 30 ml PO DAILY PRN PRN Reason: Constipation Nicotine Polacrilex (Nicotine Polacrilex 2 Mg Gum) 4 mg BUCCAL Q2H PRN PRN Reason: Nicotine Cravings Last Admin: 01/06/23 09:25 Dose: 4 mg Quetiapine Fumarate (Quetiapine Fumarate 200 Mg Tablet) 200 mg PO BEDTIME [facility] Last Admin: 01/05/23 20:58 Dose: 200 mg Quetiapine Fumarate (Quetiapine Fumarate 25 Mg Tablet) 25 mg PO BID PRN PRN Reason: Anxiety Trazodone HCl (Trazodone Hcl 50 Mg Tablet) 50 mg PO BEDTIME MRX1 PRN PRN Reason: Insomnia Last Admin: 01/02/23 23:28 Dose: 50 mg Allergies Allergies Allergy/AdvReac Type Severity Reaction Status Date / Time No Known Allergies Allergy Verified 12/31/22 18:03 Assessment & Plan Assessment & Plan (1) Bipolar 1 disorder: Status: Acute Code(s): F31.9 - Bipolar disorder, unspecified (2) PTSD (post-traumatic stress disorder): Status: Acute Code(s): F43.10 - Post-traumatic stress disorder, unspecified (3) Alcohol abuse: Status: Acute Code(s): F10.10 - Alcohol abuse, uncomplicated Plan Patient is a 57 year old female with hx of Bipolar d/p, PTSD and ETOH abuse who arrived via EMS to [facility] [place] ER d/t passive suicidal ideation secondary to increased depressive symptoms from homelessness and alcohol use. Plan: CV 15 minute safety checks CIWA DC Wellbutrin Start: Vraylar 1.5mg PO daily Seroquel 25mg PO BID PRN Obtain collateral Referral to outpatient substance abuse program? Referral to domestic violence program? 01/03: Patient presents calm, cooperative, less rapid speech. Continues circumstantial and long winded in responses. She reports feeling anxious, depressed and hopeless d/t being worried about what's next after the hospital . Patient stated, I know my drinking is a problem but I need 1:1 therapy to fix the root cause of my drinking . Patient reports she does not want us speaking with her daughter. Pt reports feeling hopeful about the new medication . Vraylar increased to 3mg PO daily. 01/04: Continue current treatment plan. 01/05: Lower Vraylar to 1.5 mg daily. MILAGRO ARIAS. 01/06: Continue current regimen and plans. Patient educated on: medication risk/benefits Reason for continued inpatient stay Substantial Risk for: med/psych decompensation Time Spent With Patient Time: Total time managing care of this patient today ____ minutes.
[2023-01-06 19:08] VITALS: BP 151/97; PULSE 110; RESP 18; TEMP 36.3; O2SAT 99
[2023-01-07 07:43] VITALS: BP 137/76; PULSE 94; RESP 17; TEMP 36.3; O2SAT 98
--- NOTE | 2023-01-07 09:34 | HO.PSYCHPN ---
Subjective Subjective Date of Service: 01/07/23 Reason For Visit: Depression Subjective Notes: Conditional Voluntary Interim History: Reviewed in team and . Patient reports feeling better today. Patient stated, no other meds have worked but I feel like the Vrylar is helping . Patient presents with rapid and pressured speech and circumstantial thought content. Pt stated, I hate that if I dance, sing or talk people think I'm hypomanic but maybe the medication is helping me feel less depressed and I'm in a better environment . Patient reports she usually have no one to talk to and now that I do, I want to make sure I get everything out . Patient states she would still like to go to a program after being hospitalized. Denies SI/HI/VH/AH. Medication Compliance: Yes Side effects from medications: No Attending Groups: Yes Review of Systems Constitutional: Reports as per HPI Eyes: Reports as per HPI Reports as per HPI Cardiovascular: Reports as per HPI Respiratory: Reports as per HPI Gastrointestinal: Reports as per HPI Genitourinary: Reports as per HPI Musculoskeletal: Reports as per HPI Skin/Breast: Reports as per HPI Reports as per HPI Psychiatric: Reports as per HPI Endocrine: Reports as per HPI Hematologic/Lymphatic: Reports as per HPI Allergic/Immunologic: Reports as per HPI Mental Status Exam Mental Status Exam Narrative: Pt is alert and oriented; behavior is cooperative, friendly and calm; dressed in casual attire; mood is described as better ; eye contact appropriate; Speech is rapid rate, and pressured; no psychomotor agitation/retardation present; thought process is organized; Thought content is circumstantial; otherwise pertinent to relevant topics and without any delusional content, paranoid ideations or grandiosity; denies SI/HI. There is no evidence of perceptual disturbance. Patients insight and judgment are poor but improving. Diagnostics Vital Signs (24Hr): Vital Signs - 24 hr 01/06/23 19:08 01/07/23 07:43 Temperature 97.4 F 97.4 F Pulse Rate 110 H 94 Respiratory Rate 18 17 Blood Pressure 151/97 H 137/76 Pulse Oximetry 99 98 Oxygen Delivery Method Room Air Room Air BMI result Body Mass Index 25.8 Labs 12/31/22 12:56 12/31/22 12:56 Medications Medications Current Medications Acetaminophen (Acetaminophen 325 Mg Tablet) 650 mg PO Q6H PRN PRN Reason: Headache/Pain Mild Scale (1-3) Al Hydroxide/Mg Hydroxide (Magnesium Hydrox/Alum Hydrox 30 Ml Oral.Susp) 30 ml PO Q6H PRN PRN Reason: Heartburn/Nausea Atorvastatin Calcium (Atorvastatin Calcium 10 Mg Tablet) 10 mg PO BEDTIME [facility] Last Admin: 01/06/23 23:04 Dose: 10 mg Cariprazine (Cariprazine Hcl 1.5 Mg Capsule) 1.5 mg PO DAILY [facility] Last Admin: 01/07/23 08:21 Dose: 1.5 mg Gabapentin (Gabapentin 300 Mg Capsule) 300 mg PO TID [facility] Last Admin: 01/07/23 08:21 Dose: 300 mg Levothyroxine Sodium (Levothyroxine Sodium 100 Mcg Tablet) 100 mcg PO DAILY@0600 [facility] Last Admin: 01/07/23 05:06 Dose: 100 mcg Loratadine (Loratadine 10 Mg Tablet) 10 mg PO DAILY [facility] Last Admin: 01/07/23 08:21 Dose: 10 mg Magnesium Hydroxide (Milk Of Magnesia 30 Ml Oral.Susp) 30 ml PO DAILY PRN PRN Reason: Constipation Nicotine Polacrilex (Nicotine Polacrilex 2 Mg Gum) 4 mg BUCCAL Q2H PRN PRN Reason: Nicotine Cravings Last Admin: 01/07/23 09:27 Dose: 4 mg Quetiapine Fumarate (Quetiapine Fumarate 200 Mg Tablet) 200 mg PO BEDTIME [facility] Last Admin: 01/06/23 23:04 Dose: 200 mg Quetiapine Fumarate (Quetiapine Fumarate 25 Mg Tablet) 25 mg PO BID PRN PRN Reason: Anxiety Trazodone HCl (Trazodone Hcl 50 Mg Tablet) 50 mg PO BEDTIME MRX1 PRN PRN Reason: Insomnia Last Admin: 01/02/23 23:28 Dose: 50 mg Allergies Allergies Allergy/AdvReac Type Severity Reaction Status Date / Time No Known Allergies Allergy Verified 12/31/22 18:03 Assessment & Plan Assessment & Plan (1) Bipolar 1 disorder: Status: Acute Code(s): F31.9 - Bipolar disorder, unspecified (2) PTSD (post-traumatic stress disorder): Status: Acute Code(s): F43.10 - Post-traumatic stress disorder, unspecified (3) Alcohol abuse: Status: Acute Code(s): F10.10 - Alcohol abuse, uncomplicated Plan Patient is a 57 year old female with hx of Bipolar d/p, PTSD and ETOH abuse who arrived via EMS to [facility] d/t passive suicidal ideation secondary to increased depressive symptoms from homelessness and alcohol use. Plan: CV 15 minute safety checks [facility]WA [place] Wellbutrin Start: Vraylar 1.5mg PO daily Seroquel 25mg PO BID PRN Obtain collateral Referral to outpatient substance abuse program? Referral to domestic violence program? 01/03: Patient presents calm, cooperative, less rapid speech. Continues circumstantial and long winded in responses. She reports feeling anxious, depressed and hopeless d/t being worried about what's next after the hospital . Patient stated, I know my drinking is a problem but I need 1:1 therapy to fix the root cause of my drinking . Patient reports she does not want us speaking with her daughter. Pt reports feeling hopeful about the new medication . Vraylar increased to 3mg PO daily. 01/04: Continue current treatment plan. 01/05: Lower Vraylar to 1.5 mg daily. DC JUANA. 01/06: Continue current regimen and plans. 01/07: Patient reports feeling better today. Patient stated, no other meds have worked but I feel like the Vrylar is helping . Patient presents with rapid and pressured speech and circumstantial thought content. Pt stated, I hate that if I dance, sing or talk people think I'm hypomanic but maybe the medication is helping me feel less depressed and I'm in a better environment . Patient reports she usually have no one to talk to and now that I do, I want to make sure I get everything out . Patient states she would still like to go to a program after being hospitalized. Denies SI/HI/VH/AH. Vrylar increased to 3mg PO daily. Start Cogentin 0.5mg PO BID. Patient educated on: diagnosis, medication risk/benefits, substance abuse and therapeutic strategies Informed Consent: understands and further education needed Reason for continued inpatient stay Substantial Risk for: med/psych decompensation Time Spent With Patient Time: Total time managing care of this patient today _30___ minutes.
[2023-01-07 18:50] VITALS: BP 144/84; PULSE 84; RESP 18; TEMP 36; O2SAT 98
[2023-01-08 08:40] VITALS: BP 119/77; PULSE 93; RESP 16; TEMP 36.2; O2SAT 98
--- NOTE | 2023-01-08 09:07 | HO.PSYCHPN ---
Subjective Subjective Date of Service: 01/08/23 Reason For Visit: Depression Subjective Notes: Conditional Voluntary Interim History: Reviewed in team and . Patient reports feeling better today. Patient presents less rapid and pressured; with organized thought process. Pt stated, I'm enjoying the clients and staff here but I'm trying to focus on the future now. I fully know I abused alcohol and I'm open to getting treatment and dig deeper . Pt denies any side effects from increase in Vrylar; will continue to monitor. Medication Compliance: Yes Side effects from medications: No Attending Groups: Yes Review of Systems Constitutional: Reports as per HPI Eyes: Reports as per HPI Reports as per HPI Cardiovascular: Reports as per HPI Respiratory: Reports as per HPI Gastrointestinal: Reports as per HPI Genitourinary: Reports as per HPI Musculoskeletal: Reports as per HPI Skin/Breast: Reports as per HPI Reports as per HPI Psychiatric: Reports as per HPI Endocrine: Reports as per HPI Hematologic/Lymphatic: Reports as per HPI Allergic/Immunologic: Reports as per HPI Mental Status Exam Mental Status Exam Narrative: Pt is alert and oriented; behavior is cooperative, friendly and calm; dressed in casual attire; mood is described as good ; eye contact appropriate; Speech is less rapid and pressured; no psychomotor agitation/retardation present; thought process is organized and goal directed; Thought content is on tx; otherwise pertinent to relevant topics and without any delusional content, paranoid ideations or grandiosity; denies SI/HI. There is no evidence of perceptual disturbance. Patients insight and judgment are fair.. Diagnostics Vital Signs (24Hr): Vital Signs - 24 hr 01/07/23 18:50 01/08/23 08:40 Temperature 96.8 F 97.1 F Pulse Rate 84 93 Respiratory Rate 18 16 Blood Pressure 144/84 H 119/77 Pulse Oximetry 98 98 Oxygen Delivery Method Room Air Room Air BMI result Body Mass Index 25.8 Labs 12/31/22 12:56 12/31/22 12:56 Medications Medications Current Medications Acetaminophen (Acetaminophen 325 Mg Tablet) 650 mg PO Q6H PRN PRN Reason: Headache/Pain Mild Scale (1-3) Al Hydroxide/Mg Hydroxide (Magnesium Hydrox/Alum Hydrox 30 Ml Oral.Susp) 30 ml PO Q6H PRN PRN Reason: Heartburn/Nausea Atorvastatin Calcium (Atorvastatin Calcium 10 Mg Tablet) 10 mg PO BEDTIME [facility] Last Admin: 10/10/23 22:22 Dose: 10 mg Benztropine Mesylate (Benztropine Mesylate 0.5 Mg Tablet) 0.5 mg PO BID COUNTS [facility]CLUDE 234 BEDS AT [facility] Last Admin: 01/08/23 08:35 Dose: 0.5 mg Cariprazine (Cariprazine Hcl 3 Mg Capsule) 3 mg PO DAILY COUNTS INCLUDE 234 BEDS AT THE [facility] Last Admin: 01/08/23 08:36 Dose: 3 mg Gabapentin (Gabapentin 300 Mg Capsule) 300 mg PO TID [facility]S [facility]CLUDE 234 BEDS AT THE [facility] Last Admin: 01/08/23 08:36 Dose: 300 mg Levothyroxine Sodium (Levothyroxine Sodium 100 Mcg Tablet) 100 mcg PO DAILY@0600 [facility]S [facility]CLUDE 234 BEDS AT THE [facility] Last Admin: 01/08/23 05:34 Dose: 100 mcg Loratadine (Loratadine 10 Mg Tablet) 10 mg PO DAILY COUNTS INCLUDE 234 BEDS AT THE [facility] Last Admin: 01/08/23 08:35 Dose: 10 mg Magnesium Hydroxide (Milk Of Magnesia 30 Ml Oral.Susp) 30 ml PO DAILY PRN PRN Reason: Constipation Nicotine Polacrilex (Nicotine Polacrilex 2 Mg Gum) 4 mg BUCCAL Q2H PRN PRN Reason: Nicotine Cravings Last Admin: 01/08/23 05:34 Dose: 4 mg Quetiapine Fumarate (Quetiapine Fumarate 200 Mg Tablet) 200 mg PO BEDTIME [facility]S [facility]CLUDE 234 BEDS AT [facility] Last Admin: 01/07/23 22:22 Dose: 200 mg Quetiapine Fumarate (Quetiapine Fumarate 25 Mg Tablet) 25 mg PO BID PRN PRN Reason: Anxiety Trazodone HCl (Trazodone Hcl 50 Mg Tablet) 50 mg PO BEDTIME MRX1 PRN PRN Reason: Insomnia Last Admin: 01/02/23 23:28 Dose: 50 mg Allergies Allergies Allergy/AdvReac Type Severity Reaction Status Date / Time No Known Allergies Allergy Verified 12/31/22 18:03 Assessment & Plan Assessment & Plan (1) Bipolar 1 disorder: Status: Acute Code(s): F31.9 - Bipolar disorder, unspecified (2) PTSD (post-traumatic stress disorder): Status: Acute Code(s): F43.10 - Post-traumatic stress disorder, unspecified (3) Alcohol abuse: Status: Acute Code(s): F10.10 - Alcohol abuse, uncomplicated Plan Patient is a 57 year old female with hx of Bipolar d/p, PTSD and ETOH abuse who arrived via EMS to [facility] d/t passive suicidal ideation secondary to increased depressive symptoms from homelessness and alcohol use. Plan: CV 15 minute safety checks [facility] [place] Wellbutrin Start: Vraylar 1.5mg PO daily Seroquel 25mg PO BID PRN Obtain collateral Referral to outpatient substance abuse program? Referral to domestic violence program? 01/03: Patient presents calm, cooperative, less rapid speech. Continues circumstantial and long winded in responses. She reports feeling anxious, depressed and hopeless d/t being worried about what's next after the hospital . Patient stated, I know my drinking is a problem but I need 1:1 therapy to fix the root cause of my drinking . Patient reports she does not want us speaking with her daughter. Pt reports feeling hopeful about the new medication . Vraylar increased to 3mg PO daily. 01/04: Continue current treatment plan. 01/05: Lower Vraylar to 1.5 mg daily. DC CIWA. 01/06: Continue current regimen and plans. 01/07: Patient reports feeling better today. Patient stated, no other meds have worked but I feel like the Vrylar is helping . Patient presents with rapid and pressured speech and circumstantial thought content. Pt stated, I hate that if I dance, sing or talk people think I'm hypomanic but maybe the medication is helping me feel less depressed and I'm in a better environment . Patient reports she usually have no one to talk to and now that I do, I want to make sure I get everything out . Patient states she would still like to go to a program after being hospitalized. Denies SI/HI/VH/AH. Vrylar increased to 3mg PO daily. Start Cogentin 0.5mg PO BID. 01/08: Patient reports feeling better today. Patient presents less rapid and pressured; with organized thought process. Pt stated, I'm enjoying the clients and staff here but I'm trying to focus on the future now. I fully know I abused alcohol and I'm open to getting treatment and dig deeper . Pt denies any side effects from increase in Vrylar; will continue to monitor. Patient educated on: diagnosis, medication risk/benefits, substance abuse and therapeutic strategies Informed Consent: understands Reason for continued inpatient stay Substantial Risk for: med/psych decompensation Time Spent With Patient Time: Total time managing care of this patient today _30___ minutes.
[2023-01-08] MEDS: Nicotine Polacrilex 2 MG GUM 4 MG BUCCAL ×4 (16:32→22:45)
[2023-01-08 20:24] VITALS: BP 140/63; PULSE 104; RESP 18; TEMP 36.6; O2SAT 95
[2023-01-08] MEDS: Atorvastatin Calcium 10 MG TABLET PO (22:44)
[2023-01-08] MEDS: Gabapentin 300 MG CAPSULE PO (22:44)
[2023-01-08] MEDS: Benztropine Mesylate 0.5 MG TABLET PO (22:44)
[2023-01-08] MEDS: QUEtiapine Fumarate 200 MG TABLET PO (22:45)
[2023-01-09] MEDS: Nicotine Polacrilex 2 MG GUM 4 MG BUCCAL ×7 (06:33→23:03)
[2023-01-09] MEDS: Levothyroxine Sodium 100 MCG TABLET PO (06:33)
[2023-01-09] MEDS: Cariprazine HCl 3 MG CAPSULE PO (08:04)
[2023-01-09] MEDS: Loratadine 10 MG TABLET PO (08:05)
[2023-01-09] MEDS: Gabapentin 300 MG CAPSULE PO ×3 (08:05→23:02)
[2023-01-09] MEDS: Benztropine Mesylate 0.5 MG TABLET PO ×2 (08:05→23:03)
[2023-01-09 08:35] VITALS: BP 128/84; PULSE 100; RESP 16; TEMP 36.2; O2SAT 99
--- NOTE | 2023-01-09 09:43 | P.PNPSI_ITS ---
Subjective Subjective Date of Service: 01/09/23 Reason For Visit: Depression Subjective Notes: Conditional Voluntary Interim History: Reviewed in team and . Patient reports feeling good today. Patient presents less rapid and pressured; with organized thought process. Denies any side effects from increase in Vrylar; will continue to monitor. Denies SI/HI/VH/AH. Medication Compliance: Yes Side effects from medications: No Attending Groups: Yes Review of Systems Constitutional: Reports as per HPI Eyes: Reports as per HPI Reports as per HPI Cardiovascular: Reports as per HPI Respiratory: Reports as per HPI Gastrointestinal: Reports as per HPI Genitourinary: Reports as per HPI Musculoskeletal: Reports as per HPI Skin/Breast: Reports as per HPI Reports as per HPI Psychiatric: Reports as per HPI Endocrine: Reports as per HPI Hematologic/Lymphatic: Reports as per HPI Allergic/Immunologic: Reports as per HPI Mental Status Exam Mental Status Exam Narrative: Pt is alert and oriented; behavior is cooperative, friendly and calm; dressed in casual attire; mood is described as good ; eye contact appropriate; Speech is less rapid and pressured; no psychomotor agitation/retardation present; thought process is organized and goal directed; Thought content is on tx; otherwise pertinent to relevant topics and without any delusional content, paranoid ideations or grandiosity; denies SI/HI. There is no evidence of perceptual disturbance. Patients insight and judgment are fair.. Diagnostics Vital Signs (24Hr): Vital Signs - 24 hr 01/08/23 20:24 01/09/23 08:35 Temperature 97.9 F 97.1 F Pulse Rate 104 H 100 Respiratory Rate 18 16 Blood Pressure 140/63 H 128/84 Pulse Oximetry 95 99 Oxygen Delivery Method Room Air Room Air BMI result Body Mass Index 25.8 Labs 12/31/22 12:56 12/31/22 12:56 Medications Medications Current Medications Acetaminophen (Acetaminophen 325 Mg Tablet) 650 mg PO Q6H PRN PRN Reason: Headache/Pain Mild Scale (1-3) Al Hydroxide/Mg Hydroxide (Magnesium Hydrox/Alum Hydrox 30 Ml Oral.Susp) 30 ml PO Q6H PRN PRN Reason: Heartburn/Nausea Atorvastatin Calcium (Atorvastatin Calcium 10 Mg Tablet) 10 mg PO BEDTIME [facility] Last Admin: 01/08/23 22:44 Dose: 10 mg Benztropine Mesylate (Benztropine Mesylate 0.5 Mg Tablet) 0.5 mg PO BID [facility] Last Admin: 01/09/23 08:05 Dose: 0.5 mg Cariprazine (Cariprazine Hcl 3 Mg Capsule) 3 mg PO DAILY [facility] Last Admin: 01/09/23 08:04 Dose: 3 mg Gabapentin (Gabapentin 300 Mg Capsule) 300 mg PO TID [facility] Last Admin: 01/09/23 08:05 Dose: 300 mg Levothyroxine Sodium (Levothyroxine Sodium 100 Mcg Tablet) 100 mcg PO DAILY@0600 [facility] Last Admin: 01/09/23 06:33 Dose: 100 mcg Loratadine (Loratadine 10 Mg Tablet) 10 mg PO DAILY [facility] Last Admin: 01/09/23 08:05 Dose: 10 mg Magnesium Hydroxide (Milk Of Magnesia 30 Ml Oral.Susp) 30 ml PO DAILY PRN PRN Reason: Constipation Nicotine Polacrilex (Nicotine Polacrilex 2 Mg Gum) 4 mg BUCCAL Q2H PRN PRN Reason: Nicotine Cravings Last Admin: 01/09/23 06:33 Dose: 4 mg Quetiapine Fumarate (Quetiapine Fumarate 200 Mg Tablet) 200 mg PO BEDTIME [facility] Last Admin: 01/08/23 22:45 Dose: 200 mg Quetiapine Fumarate (Quetiapine Fumarate 25 Mg Tablet) 25 mg PO BID PRN PRN Reason: Anxiety Trazodone HCl (Trazodone Hcl 50 Mg Tablet) 50 mg PO BEDTIME MRX1 PRN PRN Reason: Insomnia Last Admin: 01/02/23 23:28 Dose: 50 mg Allergies Allergies Allergy/AdvReac Type Severity Reaction Status Date / Time No Known Allergies Allergy Verified 12/31/22 18:03 Assessment & Plan Assessment & Plan (1) Bipolar 1 disorder: Status: Acute Code(s): F31.9 - Bipolar disorder, unspecified (2) PTSD (post-traumatic stress disorder): Status: Acute Code(s): F43.10 - Post-traumatic stress disorder, unspecified (3) Alcohol abuse: Status: Acute Code(s): F10.10 - Alcohol abuse, uncomplicated Plan Patient is a 57 year old female with hx of Bipolar d/p, PTSD and ETOH abuse who arrived via EMS to [facility] d/t passive suicidal ideation secondary to increased depressive symptoms from homelessness and alcohol use. Plan: CV 15 minute safety checks [facility] [place] Wellbutrin Start: Vraylar 1.5mg PO daily Seroquel 25mg PO BID PRN Obtain collateral Referral to outpatient substance abuse program? Referral to domestic violence program? 01/03: Patient presents calm, cooperative, less rapid speech. Continues circumstantial and long winded in responses. She reports feeling anxious, depressed and hopeless d/t being worried about what's next after the hospital . Patient stated, I know my drinking is a problem but I need 1:1 therapy to fix the root cause of my drinking . Patient reports she does not want us speaking with her daughter. Pt reports feeling hopeful about the new medication . Vraylar increased to 3mg PO daily. 01/04: Continue current treatment plan. 01/05: Lower Vraylar to 1.5 mg daily. DC CIWA. 01/06: Continue current regimen and plans. 01/07: Patient reports feeling better today. Patient stated, no other meds have worked but I feel like the Vrylar is helping . Patient presents with rapid and pressured speech and circumstantial thought content. Pt stated, I hate that if I dance, sing or talk people think I'm hypomanic but maybe the medication is helping me feel less depressed and I'm in a better environment . Patient reports she usually have no one to talk to and now that I do, I want to make sure I get everything out . Patient states she would still like to go to a program after being hospitalized. Denies SI/HI/VH/AH. Vrylar increased to 3mg PO daily. Start Cogentin 0.5mg PO BID. 01/08: Patient reports feeling better today. Patient presents less rapid and pressured; with organized thought process. Pt stated, I'm enjoying the clients and staff here but I'm trying to focus on the future now. I fully know I abused alcohol and I'm open to getting treatment and dig deeper . Pt denies any side effects from increase in Vrylar; will continue to monitor. 01/09: Patient reports feeling good today. Patient presents less rapid and pressured; with organized thought process. Denies any side effects from increase in Vrylar; will continue to monitor. Denies SI/HI/VH/AH. Patient educated on: diagnosis, medication risk/benefits, substance abuse and therapeutic strategies Informed Consent: understands Reason for continued inpatient stay Substantial Risk for: med/psych decompensation Time Spent With Patient Time: Total time managing care of this patient today _30___ minutes.
[2023-01-09 09:49] VITALS: BMI 24.7
[2023-01-09] MEDS: QUEtiapine Fumarate 25 MG TABLET PO (13:48)
[2023-01-09 20:16] VITALS: BP 125/77; PULSE 109; RESP 18; TEMP 36.3; O2SAT 98
[2023-01-09] MEDS: Atorvastatin Calcium 10 MG TABLET PO (23:03)
[2023-01-09] MEDS: QUEtiapine Fumarate 200 MG TABLET PO (23:03)
[2023-01-10] MEDS: Nicotine Polacrilex 2 MG GUM 4 MG BUCCAL ×7 (03:56→21:16)
[2023-01-10] MEDS: Levothyroxine Sodium 100 MCG TABLET PO (06:21)
[2023-01-10 08:00] VITALS: BP 134/95; PULSE 97; RESP 16; TEMP 36.1; O2SAT 99
[2023-01-10] MEDS: Loratadine 10 MG TABLET PO (08:08)
[2023-01-10] MEDS: Gabapentin 300 MG CAPSULE PO ×3 (08:09→22:24)
[2023-01-10] MEDS: Benztropine Mesylate 0.5 MG TABLET PO ×2 (08:09→22:24)
[2023-01-10] MEDS: Cariprazine HCl 1.5 MG CAPSULE 4.5 MG PO (08:24)
--- NOTE | 2023-01-10 09:25 | P.PNPSI_ITS ---
Subjective Subjective Date of Service: 01/10/23 Reason For Visit: Depression Subjective Notes: Conditional Voluntary Interim History: Reviewed in team and . Patient reports feeling good today. Patients speech is normal rate, not pressured today; with organized thought process. Denies any side effects from increase in Vrylar; will continue to monitor. Denies SI/HI/VH/AH. Patient is hoping to be discharged next week to a step down program. Medication Compliance: Yes Side effects from medications: No Attending Groups: Yes Review of Systems Constitutional: Reports as per HPI Eyes: Reports as per HPI Reports as per HPI Cardiovascular: Reports as per HPI Respiratory: Reports as per HPI Gastrointestinal: Reports as per HPI Genitourinary: Reports as per HPI Musculoskeletal: Reports as per HPI Skin/Breast: Reports as per HPI Reports as per HPI Psychiatric: Reports as per HPI Endocrine: Reports as per HPI Hematologic/Lymphatic: Reports as per HPI Allergic/Immunologic: Reports as per HPI Mental Status Exam Mental Status Exam Narrative: Pt is alert and oriented; behavior is cooperative, friendly and calm; dressed in casual attire; mood is described as good ; eye contact appropriate; Speech is normal rate, volume and prosody and not pressured; no psychomotor agitation/retardation present; thought process is organized and goal directed; Thought content is on tx; otherwise pertinent to relevant topics and without any delusional content, paranoid ideations or grandiosity; denies SI/HI. There is no evidence of perceptual disturbance. Patients insight and judgment are fair. Diagnostics Vital Signs (24Hr): Vital Signs - 24 hr 01/09/23 20:16 01/10/23 08:00 Temperature 97.3 F 97.0 F Pulse Rate 109 H 97 Respiratory Rate 18 16 Blood Pressure 125/77 134/95 H Pulse Oximetry 98 99 Oxygen Delivery Method Room Air Room Air BMI result Body Mass Index 24.7 Labs 12/31/22 12:56 12/31/22 12:56 Medications Medications Current Medications Acetaminophen (Acetaminophen 325 Mg Tablet) 650 mg PO Q6H PRN PRN Reason: Headache/Pain Mild Scale (1-3) Al Hydroxide/Mg Hydroxide (Magnesium Hydrox/Alum Hydrox 30 Ml Oral.Susp) 30 ml PO Q6H PRN PRN Reason: Heartburn/Nausea Atorvastatin Calcium (Atorvastatin Calcium 10 Mg Tablet) 10 mg PO BEDTIME PATI Last Admin: 01/09/23 23:03 Dose: 10 mg Benztropine Mesylate (Benztropine Mesylate 0.5 Mg Tablet) 0.5 mg PO BID [facility] Last Admin: 01/10/23 08:09 Dose: 0.5 mg Cariprazine (Cariprazine Hcl 1.5 Mg Capsule) 4.5 mg PO DAILY [facility] Last Admin: 01/10/23 08:24 Dose: 4.5 mg Gabapentin (Gabapentin 300 Mg Capsule) 300 mg PO TID [facility] Last Admin: 01/10/23 08:09 Dose: 300 mg Levothyroxine Sodium (Levothyroxine Sodium 100 Mcg Tablet) 100 mcg PO DAILY@0600 [facility] Last Admin: 01/10/23 06:21 Dose: 100 mcg Loratadine (Loratadine 10 Mg Tablet) 10 mg PO DAILY [facility] Last Admin: 01/10/23 08:08 Dose: 10 mg Magnesium Hydroxide (Milk Of Magnesia 30 Ml Oral.Susp) 30 ml PO DAILY PRN PRN Reason: Constipation Nicotine Polacrilex (Nicotine Polacrilex 2 Mg Gum) 4 mg BUCCAL Q2H PRN PRN Reason: Nicotine Cravings Last Admin: 01/10/23 09:16 Dose: 4 mg Quetiapine Fumarate (Quetiapine Fumarate 200 Mg Tablet) 200 mg PO BEDTIME [facility] Last Admin: 01/09/23 23:03 Dose: 200 mg Quetiapine Fumarate (Quetiapine Fumarate 25 Mg Tablet) 25 mg PO BID PRN PRN Reason: Anxiety Last Admin: 01/09/23 13:48 Dose: 25 mg Trazodone HCl (Trazodone Hcl 50 Mg Tablet) 50 mg PO BEDTIME MRX1 PRN PRN Reason: Insomnia Last Admin: 01/02/23 23:28 Dose: 50 mg Allergies Allergies Allergy/AdvReac Type Severity Reaction Status Date / Time No Known Allergies Allergy Verified 12/31/22 18:03 Assessment & Plan Assessment & Plan (1) Bipolar 1 disorder: Status: Acute Code(s): F31.9 - Bipolar disorder, unspecified (2) PTSD (post-traumatic stress disorder): Status: Acute Code(s): F43.10 - Post-traumatic stress disorder, unspecified (3) Alcohol abuse: Status: Acute Code(s): F10.10 - Alcohol abuse, uncomplicated Plan Patient is a 57 year old female with hx of Bipolar d/p, PTSD and ETOH abuse who [place] via EMS [place] [facility] [place]/t passive suicidal ideation secondary to increased depressive symptoms from homelessness and alcohol use. Plan: CV 15 minute safety checks CIWA DC Wellbutrin Start: Vraylar 1.5mg PO daily Seroquel 25mg PO BID PRN Obtain collateral Referral to outpatient substance abuse program? Referral to domestic violence program? 01/03: Patient presents calm, cooperative, less rapid speech. Continues circumstantial and long winded in responses. She reports feeling anxious, depressed and hopeless d/t being worried about what's next after the hospital . Patient stated, I know my drinking is a problem but I need 1:1 therapy to fix the root cause of my drinking . Patient reports she does not want us speaking with her daughter. Pt reports feeling hopeful about the new medication . Vraylar increased to 3mg PO daily. 01/04: Continue current treatment plan. 01/05: Lower Vraylar to 1.5 mg daily. DC JUANA. 01/06: Continue current regimen and plans. 01/07: Patient reports feeling better today. Patient stated, no other meds have worked but I feel like the Vrylar is helping . Patient presents with rapid and pressured speech and circumstantial thought content. Pt stated, I hate that if I dance, sing or talk people think I'm hypomanic but maybe the medication is helping me feel less depressed and I'm in a better environment . Patient reports she usually have no one to talk to and now that I do, I want to make sure I get everything out . Patient states she would still like to go to a program after being hospitalized. Denies SI/HI/VH/AH. Vrylar increased to 3mg PO daily. Start Cogentin 0.5mg PO BID. 01/08: Patient reports feeling better today. Patient presents less rapid and pressured; with organized thought process. Pt stated, I'm enjoying the clients and staff here but I'm trying to focus on the future now. I fully know I abused alcohol and I'm open to getting treatment and dig deeper . Pt denies any side effects from increase in Vrylar; will continue to monitor. 01/09: Patient reports feeling good today. Patient presents less rapid and pressured; with organized thought process. Denies any side effects from increase in Vrylar; will continue to monitor. Denies SI/HI/VH/AH. 01/10: Patient reports feeling good today. Patients speech is normal rate, not pressured today; with organized thought process. Denies any side effects from increase in Vrylar; will continue to monitor. Denies SI/HI/VH/AH. Patient is hoping to be discharged next week to a step down program. Vraylar increased to 4.5mg PO daily Patient educated on: diagnosis, medication risk/benefits, substance abuse and therapeutic strategies Informed Consent: understands Reason for continued inpatient stay Substantial Risk for: med/psych decompensation Time Spent With Patient Time: Total time managing care of this patient today _30___ minutes.
[2023-01-10 16:10] VITALS: BP 130/72; PULSE 98; RESP 20; TEMP 36.4; O2SAT 95
[2023-01-10] MEDS: Magnesium Hydrox/Alum Hydrox 30 ML ORAL.SUSP PO (16:17)
--- NOTE | 2023-01-10 18:28 | PC.NURSE ---
Large red raised rash areas bilateral inner thighs, spotty areas noted bilateral lower legs; denies itch. Sara Arauz SODDER notified of rash at present time and vomiting episode x1 lg amt orange/pack liquid. Pt reported vomiting due to drinking oj/coffee and eating sonal crackers. Staff member who witnessed vomit states this was consistent with site of vomit. Pt questioned rash due to increase in Vraylar or detergent. New orders received for Hydrocortisone cr.
[2023-01-10 20:26] VITALS: BP 134/85; PULSE 104; RESP 18; TEMP 36.3; O2SAT 94
[2023-01-10] MEDS: QUEtiapine Fumarate 200 MG TABLET PO (22:25)
[2023-01-10] MEDS: Atorvastatin Calcium 10 MG TABLET PO (22:25)
[2023-01-10] MEDS: Hydrocortisone 1 % Cream 28.35 GM TUBE 1 APPL TOPICAL (22:26)
[2023-01-11] MEDS: Nicotine Polacrilex 2 MG GUM 4 MG BUCCAL ×7 (01:55→21:11)
[2023-01-11] MEDS: Levothyroxine Sodium 100 MCG TABLET PO (06:23)
[2023-01-11 08:10] VITALS: BP 127/75; PULSE 110; RESP 20; TEMP 36.3; O2SAT 95
[2023-01-11] MEDS: Cariprazine HCl 1.5 MG CAPSULE 4.5 MG PO (08:14)
[2023-01-11] MEDS: Gabapentin 300 MG CAPSULE PO ×3 (08:14→22:15)
[2023-01-11] MEDS: Loratadine 10 MG TABLET PO (08:15)
[2023-01-11] MEDS: Benztropine Mesylate 0.5 MG TABLET PO ×2 (08:15→22:15)
[2023-01-11] MEDS: Hydrocortisone 1 % Cream 28.35 GM TUBE 1 APPL TOPICAL ×3 (08:15→22:19)
[2023-01-11] MEDS: Magnesium Hydrox/Alum Hydrox 30 ML ORAL.SUSP PO (11:54)
[2023-01-11] MEDS: QUEtiapine Fumarate 25 MG TABLET PO (16:16)
--- NOTE | 2023-01-11 16:46 | P.PNPSI_ITS ---
Subjective Subjective Date of Service: 01/11/23 Reason For Visit: Depression Medical Problems Affecting Mental Status: No Interim History: No acute management issues. Rash improving (not med related). Sleep ok. Pressured speech. Hopeful ref vraylar and mood stability/depression. Feels supported Medication Compliance: Yes Side effects from medications: No Attending Groups: Yes Review of Systems Acute medical concerns: No Review of Systems Review of Systems rash improving Mental Status Exam Mental Status Exam Narrative: Pt is alert and oriented; behavior is cooperative, friendly and calm; dressed in casual attire; mood is described as good ; eye contact appropriate; Speech is pressured slightly; no psychomotor agitation/retardation present; thought process is organized and goal directed; Thought content is on tx; otherwise pertinent to relevant topics and without any delusional content, paranoid ideations or grandiosity; denies SI/HI. There is no evidence of perceptual disturbance. Patients insight and judgment are fair. Diagnostics Vital Signs (24Hr): Vital Signs - 24 hr 01/10/23 20:26 01/11/23 08:10 Temperature 97.3 F 97.3 F Pulse Rate 104 H 110 H Respiratory Rate 18 20 Blood Pressure 134/85 127/75 Pulse Oximetry 94 95 Oxygen Delivery Method Room Air Room Air BMI result Body Mass Index 24.7 Labs 12/31/22 12:56 12/31/22 12:56 Medications Medications Current Medications Acetaminophen (Acetaminophen 325 Mg Tablet) 650 mg PO Q6H PRN PRN Reason: Headache/Pain Mild Scale (1-3) Al Hydroxide/Mg Hydroxide (Magnesium Hydrox/Alum Hydrox 30 Ml Oral.Susp) 30 ml PO Q6H PRN PRN Reason: Heartburn/Nausea Last Admin: 01/11/23 11:54 Dose: 30 ml Atorvastatin Calcium (Atorvastatin Calcium 10 Mg Tablet) 10 mg PO BEDTIME [facility] Last Admin: 01/10/23 22:25 Dose: 10 mg Benztropine Mesylate (Benztropine Mesylate 0.5 Mg Tablet) 0.5 mg PO BID [facility] Last Admin: 01/11/23 08:15 Dose: 0.5 mg Cariprazine (Cariprazine Hcl 1.5 Mg Capsule) 4.5 mg PO DAILY [facility] Last Admin: 01/11/23 08:14 Dose: 4.5 mg Gabapentin (Gabapentin 300 Mg Capsule) 300 mg PO TID [facility] Last Admin: 01/11/23 14:37 Dose: 300 mg Hydrocortisone (Hydrocortisone 1 % Cream 28.35 Gm Tube) 1 appl TOPICAL TID PATI; Protocol Last Admin: 01/11/23 14:39 Dose: 1 appl Levothyroxine Sodium (Levothyroxine Sodium 100 Mcg Tablet) 100 mcg PO DAILY@0600 [facility] Last Admin: 01/11/23 06:23 Dose: 100 mcg Loratadine (Loratadine 10 Mg Tablet) 10 mg PO DAILY [facility] Last Admin: 01/11/23 08:15 Dose: 10 mg Magnesium Hydroxide (Milk Of Magnesia 30 Ml Oral.Susp) 30 ml PO DAILY PRN PRN Reason: Constipation Nicotine Polacrilex (Nicotine Polacrilex 2 Mg Gum) 4 mg BUCCAL Q2H PRN PRN Reason: Nicotine Cravings Last Admin: 01/11/23 16:16 Dose: 4 mg Quetiapine Fumarate (Quetiapine Fumarate 200 Mg Tablet) 200 mg PO BEDTIME [facility] Last Admin: 01/10/23 22:25 Dose: 200 mg Quetiapine Fumarate (Quetiapine Fumarate 25 Mg Tablet) 25 mg PO BID PRN PRN Reason: Anxiety Last Admin: 01/11/23 16:16 Dose: 25 mg Trazodone HCl (Trazodone Hcl 50 Mg Tablet) 50 mg PO BEDTIME MRX1 PRN PRN Reason: Insomnia Last Admin: 01/02/23 23:28 Dose: 50 mg Allergies Allergies Allergy/AdvReac Type Severity Reaction Status Date / Time No Known Allergies Allergy Verified 12/31/22 18:03 Assessment & Plan Assessment & Plan (1) Bipolar 1 disorder: Status: Acute Code(s): F31.9 - Bipolar disorder, unspecified (2) PTSD (post-traumatic stress disorder): Status: Acute Code(s): F43.10 - Post-traumatic stress disorder, unspecified (3) Alcohol abuse: Status: Acute Code(s): F10.10 - Alcohol abuse, uncomplicated Plan Patient is a 57 year old female with hx of Bipolar d/p, PTSD and ETOH abuse who arrived via EMS to [facility] d/t passive suicidal ideation secondary to increased depressive symptoms from homelessness and alcohol use. Plan: CV 15 minute safety checks CIWA DC Wellbutrin Start: Vraylar 1.5mg PO daily Seroquel 25mg PO BID PRN Obtain collateral Referral to outpatient substance abuse program? Referral to domestic violence program? 01/03: Patient presents calm, cooperative, less rapid speech. Continues circumstantial and long winded in responses. She reports feeling anxious, depressed and hopeless d/t being worried about what's next after the hospital . Patient stated, I know my drinking is a problem but I need 1:1 therapy to fix the root cause of my drinking . Patient reports she does not want us speaking with her daughter. Pt reports feeling hopeful about the new medication . Vraylar increased to 3mg PO daily. 01/04: Continue current treatment plan. 01/05: Lower Vraylar to 1.5 mg daily. DC CIWA. 01/06: Continue current regimen and plans. 01/07: Patient reports feeling better today. Patient stated, no other meds have worked but I feel like the Vrylar is helping . Patient presents with rapid and pressured speech and circumstantial thought content. Pt stated, I hate that if I dance, sing or talk people think I'm hypomanic but maybe the medication is helping me feel less depressed and I'm in a better environment . Patient reports she usually have no one to talk to and now that I do, I want to make sure I get everything out . Patient states she would still like to go to a program after being hospitalized. Denies SI/HI/VH/AH. Vrylar increased to 3mg PO daily. Start Cogentin 0.5mg PO BID. 01/08: Patient reports feeling better today. Patient presents less rapid and pressured; with organized thought process. Pt stated, I'm enjoying the clients and staff here but I'm trying to focus on the future now. I fully know I abused alcohol and I'm open to getting treatment and dig deeper . Pt denies any side effects from increase in Vrylar; will continue to monitor. 01/09: Patient reports feeling good today. Patient presents less rapid and pressured; with organized thought process. Denies any side effects from increase in Vrylar; will continue to monitor. Denies SI/HI/VH/AH. 01/10: Patient reports feeling good today. Patients speech is normal rate, not pressured today; with organized thought process. Denies any side effects from increase in Vrylar; will continue to monitor. Denies SI/HI/VH/AH. Patient is hoping to be discharged next week to a step down program. Vraylar increased to 4.5mg PO daily 01/11: no changes Reason for continued inpatient stay Substantial Risk for: rapid decompensation Time Spent With Patient Time: Total time managing care of this patient today ____ minutes.
[2023-01-11 21:45] VITALS: BP 133/84; PULSE 92; RESP 18; TEMP 35.7; O2SAT 99
[2023-01-11] MEDS: Atorvastatin Calcium 10 MG TABLET PO (22:15)
[2023-01-11] MEDS: QUEtiapine Fumarate 200 MG TABLET PO (22:15)
[2023-01-12] MEDS: Nicotine Polacrilex 2 MG GUM 4 MG BUCCAL ×7 (01:46→20:59)
[2023-01-12 08:05] VITALS: BP 116/80; PULSE 116; RESP 20; TEMP 36.3; O2SAT 96
[2023-01-12] MEDS: Benztropine Mesylate 0.5 MG TABLET PO ×2 (08:24→21:42)
[2023-01-12] MEDS: Gabapentin 300 MG CAPSULE PO ×3 (08:24→21:42)
[2023-01-12] MEDS: Levothyroxine Sodium 100 MCG TABLET PO (08:24)
[2023-01-12] MEDS: Loratadine 10 MG TABLET PO (08:24)
[2023-01-12] MEDS: Hydrocortisone 1 % Cream 28.35 GM TUBE 1 APPL TOPICAL ×2 (08:25→21:41)
[2023-01-12] MEDS: Cariprazine HCl 1.5 MG CAPSULE 4.5 MG PO (08:25)
[2023-01-12] MEDS: Magnesium Hydrox/Alum Hydrox 30 ML ORAL.SUSP PO (10:41)
--- NOTE | 2023-01-12 14:54 | HO.PSYCHPN ---
Subjective Subjective Date of Service: 01/12/23 Reason For Visit: Depression Interim History: verbal outburst this morning. Slept poorly last night. Very pressured speech and tangential. Reports feeling the need to advocate for staff members and other people on the unit. Remains hopeful ref vraylar and mood stability/depression. Medication Compliance: Yes Side effects from medications: No Attending Groups: Yes Review of Systems Acute medical concerns: No Review of Systems Review of Systems rash improving Mental Status Exam Mental Status Exam Narrative: Pt is alert and oriented; behavior is cooperative, irritable, dressed in casual attire; mood is described as ok ; eye contact appropriate; Speech is pressured slightly; mild psychomotor agitation, thought process is organized and goal directed; Thought content is on tx; otherwise pertinent to relevant topics and without any delusional content, paranoid ideations or grandiosity; denies SI/HI. There is no evidence of perceptual disturbance. Patients insight and judgment are fair. Diagnostics Vital Signs (24Hr): Vital Signs - 24 hr 01/11/23 21:45 01/12/23 08:05 Temperature 96.2 F L 97.3 F Pulse Rate 92 116 H Respiratory Rate 18 20 Blood Pressure 133/84 116/80 Pulse Oximetry 99 96 Oxygen Delivery Method Room Air Room Air BMI result Body Mass Index 24.7 Labs 12/31/22 12:56 12/31/22 12:56 Medications Medications Current Medications Acetaminophen (Acetaminophen 325 Mg Tablet) 650 mg PO Q6H PRN PRN Reason: Headache/Pain Mild Scale (1-3) Al Hydroxide/Mg Hydroxide (Magnesium Hydrox/Alum Hydrox 30 Ml Oral.Susp) 30 ml PO Q6H PRN PRN Reason: Heartburn/Nausea Last Admin: 01/12/23 10:41 Dose: 30 ml Atorvastatin Calcium (Atorvastatin Calcium 10 Mg Tablet) 10 mg PO BEDTIME [facility] Last Admin: 01/11/23 22:15 Dose: 10 mg Benztropine Mesylate (Benztropine Mesylate 0.5 Mg Tablet) 0.5 mg PO BID [facility] Last Admin: 01/12/23 08:24 Dose: 0.5 mg Cariprazine (Cariprazine Hcl 1.5 Mg Capsule) 4.5 mg PO DAILY [facility] Last Admin: 01/12/23 08:25 Dose: 4.5 mg Gabapentin (Gabapentin 300 Mg Capsule) 300 mg PO TID [facility] Last Admin: 01/12/23 08:24 Dose: 300 mg Hydrocortisone (Hydrocortisone 1 % Cream 28.35 Gm Tube) 1 appl TOPICAL TID PATI; Protocol Last Admin: 01/12/23 08:25 Dose: 1 appl Levothyroxine Sodium (Levothyroxine Sodium 100 Mcg Tablet) 100 mcg PO DAILY@0600 [facility] Last Admin: 01/12/23 08:24 Dose: 100 mcg Loratadine (Loratadine 10 Mg Tablet) 10 mg PO DAILY [facility] Last Admin: 01/12/23 08:24 Dose: 10 mg Magnesium Hydroxide (Milk Of Magnesia 30 Ml Oral.Susp) 30 ml PO DAILY PRN PRN Reason: Constipation Nicotine Polacrilex (Nicotine Polacrilex 2 Mg Gum) 4 mg BUCCAL Q2H PRN PRN Reason: Nicotine Cravings Last Admin: 01/12/23 13:34 Dose: 4 mg Quetiapine Fumarate (Quetiapine Fumarate 200 Mg Tablet) 200 mg PO BEDTIME [facility] Last Admin: 01/11/23 22:15 Dose: 200 mg Quetiapine Fumarate (Quetiapine Fumarate 25 Mg Tablet) 25 mg PO BID PRN PRN Reason: Anxiety Last Admin: 01/11/23 16:16 Dose: 25 mg Trazodone HCl (Trazodone Hcl 50 Mg Tablet) 50 mg PO BEDTIME MRX1 PRN PRN Reason: Insomnia Last Admin: 01/02/23 23:28 Dose: 50 mg Allergies Allergies Allergy/AdvReac Type Severity Reaction Status Date / Time No Known Allergies Allergy Verified 12/31/22 18:03 Assessment & Plan Assessment & Plan (1) Bipolar 1 disorder: Status: Acute Code(s): F31.9 - Bipolar disorder, unspecified (2) PTSD (post-traumatic stress disorder): Status: Acute Code(s): F43.10 - Post-traumatic stress disorder, unspecified (3) Alcohol abuse: Status: Acute Code(s): F10.10 - Alcohol abuse, uncomplicated Plan Patient is a 57 year old female with hx of Bipolar d/p, PTSD and ETOH abuse who [place] [facility] [place]/t passive suicidal ideation secondary to increased depressive symptoms from homelessness and alcohol use. Plan: CV 15 minute safety checks CIWA DC Wellbutrin Start: Vraylar 1.5mg PO daily Seroquel 25mg PO BID PRN Obtain collateral Referral to outpatient substance abuse program? Referral to domestic violence program? 01/03: Patient presents calm, cooperative, less rapid speech. Continues circumstantial and long winded in responses. She reports feeling anxious, depressed and hopeless d/t being worried about what's next after the hospital . Patient stated, I know my drinking is a problem but I need 1:1 therapy to fix the root cause of my drinking . Patient reports she does not want us speaking with her daughter. Pt reports feeling hopeful about the new medication . Vraylar increased to 3mg PO daily. 01/04: Continue current treatment plan. 01/05: Lower Vraylar to 1.5 mg daily. DC CIWA. 01/06: Continue current regimen and plans. 01/07: Patient reports feeling better today. Patient stated, no other meds have worked but I feel like the Vrylar is helping . Patient presents with rapid and pressured speech and circumstantial thought content. Pt stated, I hate that if I dance, sing or talk people think I'm hypomanic but maybe the medication is helping me feel less depressed and I'm in a better environment . Patient reports she usually have no one to talk to and now that I do, I want to make sure I get everything out . Patient states she would still like to go to a program after being hospitalized. Denies SI/HI/VH/AH. Vrylar increased to 3mg PO daily. Start Cogentin 0.5mg PO BID. 01/08: Patient reports feeling better today. Patient presents less rapid and pressured; with organized thought process. Pt stated, I'm enjoying the clients and staff here but I'm trying to focus on the future now. I fully know I abused alcohol and I'm open to getting treatment and dig deeper . Pt denies any side effects from increase in Vrylar; will continue to monitor. 01/09: Patient reports feeling good today. Patient presents less rapid and pressured; with organized thought process. Denies any side effects from increase in Vrylar; will continue to monitor. Denies SI/HI/VH/AH. 01/10: Patient reports feeling good today. Patients speech is normal rate, not pressured today; with organized thought process. Denies any side effects from increase in Vrylar; will continue to monitor. Denies SI/HI/VH/AH. Patient is hoping to be discharged next week to a step down program. Vraylar increased to 4.5mg PO daily 01/12: no changes Reason for continued inpatient stay Substantial Risk for: rapid decompensation Time Spent With Patient Time: Total time managing care of this patient today ____ minutes.
[2023-01-12] MEDS: QUEtiapine Fumarate 25 MG TABLET PO (16:00)
[2023-01-12 18:56] VITALS: BP 137/75; PULSE 107; RESP 16; TEMP 37.1; O2SAT 99
[2023-01-12] MEDS: Atorvastatin Calcium 10 MG TABLET PO (21:42)
[2023-01-12] MEDS: QUEtiapine Fumarate 200 MG TABLET PO (21:42)
[2023-01-13] MEDS: Nicotine Polacrilex 2 MG GUM 4 MG BUCCAL ×8 (00:36→22:46)
[2023-01-13] MEDS: Magnesium Hydrox/Alum Hydrox 30 ML ORAL.SUSP PO ×2 (01:02→11:46)
[2023-01-13] MEDS: Levothyroxine Sodium 100 MCG TABLET PO (06:45)
[2023-01-13] MEDS: Loratadine 10 MG TABLET PO (08:15)
[2023-01-13] MEDS: Cariprazine HCl 1.5 MG CAPSULE 4.5 MG PO (08:16)
[2023-01-13] MEDS: Benztropine Mesylate 0.5 MG TABLET PO ×2 (08:16→22:18)
[2023-01-13] MEDS: Gabapentin 300 MG CAPSULE PO ×3 (08:16→22:19)
[2023-01-13] MEDS: Hydrocortisone 1 % Cream 28.35 GM TUBE 1 APPL TOPICAL ×2 (08:19→22:19)
[2023-01-13 08:28] VITALS: BP 125/80; PULSE 95; RESP 16; TEMP 36.2; O2SAT 95
--- NOTE | 2023-01-13 09:52 | P.PNPSI_ITS ---
Subjective Subjective Date of Service: 01/13/23 Reason For Visit: Depression Subjective Notes: Conditional Voluntary Interim History: Reviewed in team and . Patient presents with rapid and pressured speech; circumstantial. Patient reports she feels like she is doing good . Pt stated, I know I'm talking fast and a lot but it's because I just need a therapist to get everything out . Patient reports she does not want to take any mood stabilizers because I've tried them in the past and they don't work . Patient agreed to increase in Vraylar and Seroquel. Social with peers and staff, attending groups. Medication Compliance: Yes Side effects from medications: No Attending Groups: Yes Review of Systems Constitutional: Reports as per HPI Eyes: Reports as per HPI Reports as per HPI Cardiovascular: Reports as per HPI Respiratory: Reports as per HPI Gastrointestinal: Reports as per HPI Genitourinary: Reports as per HPI Musculoskeletal: Reports as per HPI Skin/Breast: Reports as per HPI Reports as per HPI Psychiatric: Reports as per HPI Endocrine: Reports as per HPI Hematologic/Lymphatic: Reports as per HPI Allergic/Immunologic: Reports as per HPI Mental Status Exam Mental Status Exam Narrative: Pt is alert and oriented; behavior is cooperative, friendly and calm; dressed in casual attire; mood is described as good ; eye contact appropriate; Speech is rapid and pressured; thought process is racing; Thought content is circumstantial; otherwise pertinent to relevant topics and without any delusional content, paranoid ideations or grandiosity; denies SI/HI. There is no evidence of perceptual disturbance. Patients insight and judgment are poor but improving. Diagnostics Vital Signs (24Hr): Vital Signs - 24 hr 01/12/23 18:56 01/13/23 08:28 Temperature 98.7 F 97.2 F Pulse Rate 107 H 95 Respiratory Rate 16 16 Blood Pressure 137/75 125/80 Pulse Oximetry 99 95 Oxygen Delivery Method Room Air Room Air BMI result Body Mass Index 24.7 Labs 12/31/22 12:56 12/31/22 12:56 Medications Medications Current Medications Acetaminophen (Acetaminophen 325 Mg Tablet) 650 mg PO Q6H PRN PRN Reason: Headache/Pain Mild Scale (1-3) Al Hydroxide/Mg Hydroxide (Magnesium Hydrox/Alum Hydrox 30 Ml Oral.Susp) 30 ml PO Q6H PRN PRN Reason: Heartburn/Nausea Last Admin: 10/16/23 01:02 Dose: 30 ml Atorvastatin Calcium (Atorvastatin Calcium 10 Mg Tablet) 10 mg PO BEDTIME [facility] Last Admin: 01/12/23 21:42 Dose: 10 mg Benztropine Mesylate (Benztropine Mesylate 0.5 Mg Tablet) 0.5 mg PO BID [facility] Last Admin: 01/13/23 08:16 Dose: 0.5 mg Cariprazine (Cariprazine Hcl 1.5 Mg Capsule) 4.5 mg PO DAILY [facility] Last Admin: 01/13/23 08:16 Dose: 4.5 mg Gabapentin (Gabapentin 300 Mg Capsule) 300 mg PO TID [facility] Last Admin: 01/13/23 08:16 Dose: 300 mg Hydrocortisone (Hydrocortisone 1 % Cream 28.35 Gm Tube) 1 appl TOPICAL TID [facility]; Protocol Last Admin: 01/13/23 08:19 Dose: 1 appl Levothyroxine Sodium (Levothyroxine Sodium 100 Mcg Tablet) 100 mcg PO DAILY@0600 [facility] Last Admin: 01/13/23 06:45 Dose: 100 mcg Loratadine (Loratadine 10 Mg Tablet) 10 mg PO DAILY [facility] Last Admin: 01/13/23 08:15 Dose: 10 mg Magnesium Hydroxide (Milk Of Magnesia 30 Ml Oral.Susp) 30 ml PO DAILY PRN PRN Reason: Constipation Nicotine Polacrilex (Nicotine Polacrilex 2 Mg Gum) 4 mg BUCCAL Q2H PRN PRN Reason: Nicotine Cravings Last Admin: 01/13/23 09:35 Dose: 4 mg Quetiapine Fumarate (Quetiapine Fumarate 200 Mg Tablet) 200 mg PO BEDTIME [facility] Last Admin: 01/12/23 21:42 Dose: 200 mg Quetiapine Fumarate (Quetiapine Fumarate 25 Mg Tablet) 25 mg PO BID PRN PRN Reason: Anxiety Last Admin: 01/12/23 16:00 Dose: 25 mg Trazodone HCl (Trazodone Hcl 50 Mg Tablet) 50 mg PO BEDTIME MRX1 PRN PRN Reason: Insomnia Last Admin: 01/02/23 23:28 Dose: 50 mg Allergies Allergies Allergy/AdvReac Type Severity Reaction Status Date / Time No Known Allergies Allergy Verified 12/31/22 18:03 Assessment & Plan Assessment & Plan (1) Bipolar 1 disorder: Status: Acute Code(s): F31.9 - Bipolar disorder, unspecified (2) PTSD (post-traumatic stress disorder): Status: Acute Code(s): F43.10 - Post-traumatic stress disorder, unspecified (3) Alcohol abuse: Status: Acute Code(s): F10.10 - Alcohol abuse, uncomplicated Plan Patient is a 57 year old female with hx of Bipolar d/p, PTSD and ETOH abuse who arrived via EMS to [facility] ER d/t passive suicidal ideation secondary to increased depressive symptoms from homelessness and alcohol use. Plan: CV 15 minute safety checks CIWA DC Wellbutrin Start: Vraylar 1.5mg PO daily Seroquel 25mg PO BID PRN Obtain collateral Referral to outpatient substance abuse program? Referral to domestic violence program? 01/03: Patient presents calm, cooperative, less rapid speech. Continues circumstantial and long winded in responses. She reports feeling anxious, depressed and hopeless d/t being worried about what's next after the hospital . Patient stated, I know my drinking is a problem but I need 1:1 therapy to fix the root cause of my drinking . Patient reports she does not want us speaking with her daughter. Pt reports feeling hopeful about the new medication . Vraylar increased to 3mg PO daily. 01/04: Continue current treatment plan. 01/05: Lower Vraylar to 1.5 mg daily. DC CIWA. 01/06: Continue current regimen and plans. 01/07: Patient reports feeling better today. Patient stated, no other meds have worked but I feel like the Vrylar is helping . Patient presents with rapid and pressured speech and circumstantial thought content. Pt stated, I hate that if I dance, sing or talk people think I'm hypomanic but maybe the medication is helping me feel less depressed and I'm in a better environment . Patient reports she usually have no one to talk to and now that I do, I want to make sure I get everything out . Patient states she would still like to go to a program after being hospitalized. Denies SI/HI/VH/AH. Vrylar increased to 3mg PO daily. Start Cogentin 0.5mg PO BID. 01/08: Patient reports feeling better today. Patient presents less rapid and pressured; with organized thought process. Pt stated, I'm enjoying the clients and staff here but I'm trying to focus on the future now. I fully know I abused alcohol and I'm open to getting treatment and dig deeper . Pt denies any side effects from increase in Vrylar; will continue to monitor. 01/09: Patient reports feeling good today. Patient presents less rapid and pressured; with organized thought process. Denies any side effects from increase in Vrylar; will continue to monitor. Denies SI/HI/VH/AH. 01/10: Patient reports feeling good today. Patients speech is normal rate, not pressured today; with organized thought process. Denies any side effects from increase in Vrylar; will continue to monitor. Denies SI/HI/VH/AH. Patient is hoping to be discharged next week to a step down program. Vraylar increased to 4.5mg PO daily 01/12: no changes 01/13: Patient presents with rapid and pressured speech; circumstantial. Patient reports she feels like she is doing good . Pt stated, I know I'm talking fast and a lot but it's because I just need a therapist to get everything out . Patient reports she does not want to take any mood stabilizers because I've tried them in the past and they don't work . Patient agreed to increase in Vraylar and Seroquel. Social with peers and staff, attending groups. Increased Vraylar to 6mg PO daily. Scheduled Seroquel 25mg PO BID. Patient educated on: diagnosis, medication risk/benefits and therapeutic strategies Informed Consent: understands and further education needed Reason for continued inpatient stay Substantial Risk for: med/psych decompensation Time Spent With Patient Time: Total time managing care of this patient today _30___ minutes.
[2023-01-13] MEDS: QUEtiapine Fumarate 25 MG TABLET PO ×2 (15:35→16:45)
[2023-01-13 19:40] VITALS: BP 138/77; PULSE 103; RESP 20; TEMP 36.1; O2SAT 99
[2023-01-13] MEDS: Atorvastatin Calcium 10 MG TABLET PO (22:18)
[2023-01-13] MEDS: QUEtiapine Fumarate 200 MG TABLET PO (22:18)
[2023-01-14] MEDS: Levothyroxine Sodium 100 MCG TABLET PO (05:20)
[2023-01-14] MEDS: Nicotine Polacrilex 2 MG GUM 4 MG BUCCAL ×6 (05:20→22:49)
[2023-01-14] MEDS: Loratadine 10 MG TABLET PO (08:03)
[2023-01-14] MEDS: Cariprazine HCl 3 MG CAPSULE 6 MG PO (08:03)
[2023-01-14] MEDS: Gabapentin 300 MG CAPSULE PO ×3 (08:03→22:48)
[2023-01-14] MEDS: Benztropine Mesylate 0.5 MG TABLET PO ×2 (08:03→22:48)
[2023-01-14] MEDS: Hydrocortisone 1 % Cream 28.35 GM TUBE 1 APPL TOPICAL ×3 (08:04→22:50)
[2023-01-14 08:55] VITALS: BP 132/83; PULSE 94; RESP 16; TEMP 36.2; O2SAT 100
--- NOTE | 2023-01-14 09:31 | P.PNPSI_ITS ---
Subjective Subjective Date of Service: 01/14/23 Reason For Visit: Depression Subjective Notes: Conditional Voluntary Interim History: Reviewed in team and . Patient continues to present with rapid and pressured speech; circumstantial. Pt stated, I need to allow myself to slow down. It's my personality and babbling is my anxiety. I feel like the medication is helping me slow down . denies any side effects from increase in medications. Medication Compliance: Yes Side effects from medications: No Attending Groups: Yes Review of Systems Constitutional: Reports as per HPI Eyes: Reports as per HPI Reports as per HPI Cardiovascular: Reports as per HPI Respiratory: Reports as per HPI Gastrointestinal: Reports as per HPI Genitourinary: Reports as per HPI Musculoskeletal: Reports as per HPI Skin/Breast: Reports as per HPI Reports as per HPI Psychiatric: Reports as per HPI Endocrine: Reports as per HPI Hematologic/Lymphatic: Reports as per HPI Allergic/Immunologic: Reports as per HPI Mental Status Exam Mental Status Exam Narrative: Pt is alert and oriented; behavior is cooperative, friendly and calm; dressed in casual attire; mood is described as good ; eye contact appropriate; Speech is rapid and pressured; thought process is racing; Thought content is circumstantial; otherwise pertinent to relevant topics and without any delusional content, paranoid ideations or grandiosity; denies SI/HI. There is no evidence of perceptual disturbance. Patients insight and judgment are poor but improving. Diagnostics Vital Signs (24Hr): Vital Signs - 24 hr 01/13/23 19:40 01/14/23 08:55 Temperature 97.0 F 97.2 F Pulse Rate 103 H 94 Respiratory Rate 20 16 Blood Pressure 138/77 132/83 Pulse Oximetry 99 100 Oxygen Delivery Method Room Air Room Air BMI result Body Mass Index 24.7 Labs 12/31/22 12:56 12/31/22 12:56 Medications Medications Current Medications Acetaminophen (Acetaminophen 325 Mg Tablet) 650 mg PO Q6H PRN PRN Reason: Headache/Pain Mild Scale (1-3) Al Hydroxide/Mg Hydroxide (Magnesium Hydrox/Alum Hydrox 30 Ml Oral.Susp) 30 ml PO Q6H PRN PRN Reason: Heartburn/Nausea Last Admin: 01/13/23 11:46 Dose: 30 ml Atorvastatin Calcium (Atorvastatin Calcium 10 Mg Tablet) 10 mg PO BEDTIME [facility] Last Admin: 10/16/23 22:18 Dose: 10 mg Benztropine Mesylate (Benztropine Mesylate 0.5 Mg Tablet) 0.5 mg PO BID [facility] Last Admin: 01/14/23 08:03 Dose: 0.5 mg Cariprazine (Cariprazine Hcl 3 Mg Capsule) 6 mg PO DAILY [facility] Last Admin: 01/14/23 08:03 Dose: 6 mg Gabapentin (Gabapentin 300 Mg Capsule) 300 mg PO TID [facility] Last Admin: 01/14/23 08:03 Dose: 300 mg Hydrocortisone (Hydrocortisone 1 % Cream 28.35 Gm Tube) 1 appl TOPICAL TID [facility]; Protocol Last Admin: 01/14/23 08:04 Dose: 1 appl Levothyroxine Sodium (Levothyroxine Sodium 100 Mcg Tablet) 100 mcg PO DAILY@0600 [facility] Last Admin: 01/14/23 05:20 Dose: 100 mcg Loratadine (Loratadine 10 Mg Tablet) 10 mg PO DAILY [facility] Last Admin: 01/14/23 08:03 Dose: 10 mg Magnesium Hydroxide (Milk Of Magnesia 30 Ml Oral.Susp) 30 ml PO DAILY PRN PRN Reason: Constipation Nicotine Polacrilex (Nicotine Polacrilex 2 Mg Gum) 4 mg BUCCAL Q2H PRN PRN Reason: Nicotine Cravings Last Admin: 01/14/23 05:20 Dose: 4 mg Quetiapine Fumarate (Quetiapine Fumarate 200 Mg Tablet) 200 mg PO BEDTIME [facility] Last Admin: 01/13/23 22:18 Dose: 200 mg Quetiapine Fumarate (Quetiapine Fumarate 25 Mg Tablet) 25 mg PO BID@1100,1600 [facility] Last Admin: 01/13/23 16:45 Dose: 25 mg Trazodone HCl (Trazodone Hcl 50 Mg Tablet) 50 mg PO BEDTIME MRX1 PRN PRN Reason: Insomnia Last Admin: 01/02/23 23:28 Dose: 50 mg Allergies Allergies Allergy/AdvReac Type Severity Reaction Status Date / Time No Known Allergies Allergy Verified 12/31/22 18:03 Assessment & Plan Assessment & Plan (1) Bipolar 1 disorder: Status: Acute Code(s): F31.9 - Bipolar disorder, unspecified (2) PTSD (post-traumatic stress disorder): Status: Acute Code(s): F43.10 - Post-traumatic stress disorder, unspecified (3) Alcohol abuse: Status: Acute Code(s): F10.10 - Alcohol abuse, uncomplicated Plan Patient is a 57 year old female with hx of Bipolar d/p, PTSD and ETOH abuse who arrived via EMS to [facility] d/t passive suicidal ideation secondary to increased depressive symptoms from homelessness and alcohol use. Plan: CV 15 minute safety checks CIWA DC Wellbutrin Start: Vraylar 1.5mg PO daily Seroquel 25mg PO BID PRN Obtain collateral Referral to outpatient substance abuse program? Referral to domestic violence program? 01/03: Patient presents calm, cooperative, less rapid speech. Continues circumstantial and long winded in responses. She reports feeling anxious, depressed and hopeless d/t being worried about what's next after the hospital . Patient stated, I know my drinking is a problem but I need 1:1 therapy to fix the root cause of my drinking . Patient reports she does not want us speaking with her daughter. Pt reports feeling hopeful about the new medication . Vraylar increased to 3mg PO daily. 01/04: Continue current treatment plan. 01/05: Lower Vraylar to 1.5 mg daily. DC CIWA. 01/06: Continue current regimen and plans. 01/07: Patient reports feeling better today. Patient stated, no other meds have worked but I feel like the Vrylar is helping . Patient presents with rapid and pressured speech and circumstantial thought content. Pt stated, I hate that if I dance, sing or talk people think I'm hypomanic but maybe the medication is helping me feel less depressed and I'm in a better environment . Patient reports she usually have no one to talk to and now that I do, I want to make sure I get everything out . Patient states she would still like to go to a program after being hospitalized. Denies SI/HI/VH/AH. Vrylar increased to 3mg PO daily. Start Cogentin 0.5mg PO BID. 01/08: Patient reports feeling better today. Patient presents less rapid and pressured; with organized thought process. Pt stated, I'm enjoying the clients and staff here but I'm trying to focus on the future now. I fully know I abused alcohol and I'm open to getting treatment and dig deeper . Pt denies any side effects from increase in Vrylar; will continue to monitor. 01/09: Patient reports feeling good today. Patient presents less rapid and pressured; with organized thought process. Denies any side effects from increase in Vrylar; will continue to monitor. Denies SI/HI/VH/AH. 01/10: Patient reports feeling good today. Patients speech is normal rate, not pressured today; with organized thought process. Denies any side effects from increase in Vrylar; will continue to monitor. Denies SI/HI/VH/AH. Patient is hoping to be discharged next week to a step down program. Vraylar increased to 4.5mg PO daily 01/12: no changes 01/13: Patient presents with rapid and pressured speech; circumstantial. Patient reports she feels like she is doing good . Pt stated, I know I'm talking fast and a lot but it's because I just need a therapist to get everything out . Patient reports she does not want to take any mood stabilizers because I've tried them in the past and they don't work . Patient agreed to increase in Vraylar and Seroquel. Social with peers and staff, attending groups. Increased Vraylar to 6mg PO daily. Scheduled Seroquel 25mg PO BID. 01/14: Rapid and pressured speech; circumstantial. Pt stated, I need to allow myself to slow down. It's my personality and babbling is my anxiety. I feel like the medication is helping me slow down . denies any side effects from increase in medications. Will increase Seroquel to 50mg PO BID. Pt continues to refuse any other suggested medications. Patient educated on: diagnosis, medication risk/benefits, substance abuse and therapeutic strategies Informed Consent: understands Reason for continued inpatient stay Substantial Risk for: med/psych decompensation Time Spent With Patient Time: Total time managing care of this patient today _30___ minutes.
[2023-01-14] MEDS: QUEtiapine Fumarate 25 MG TABLET PO (11:38)
[2023-01-14] MEDS: Magnesium Hydrox/Alum Hydrox 30 ML ORAL.SUSP PO ×3 (11:39→22:50)
[2023-01-14] MEDS: QUEtiapine Fumarate 50 MG TABLET PO (15:38)
[2023-01-14 18:00] VITALS: BP 140/83; PULSE 103; RESP 16; TEMP 36.2; O2SAT 99
[2023-01-14] MEDS: traZODone HCL 50 MG TABLET PO (22:48)
[2023-01-14] MEDS: Atorvastatin Calcium 10 MG TABLET PO (22:48)
[2023-01-14] MEDS: QUEtiapine Fumarate 200 MG TABLET PO (22:49)
[2023-01-15] MEDS: Nicotine Polacrilex 2 MG GUM 4 MG BUCCAL ×7 (02:38→20:07)
[2023-01-15] MEDS: Levothyroxine Sodium 100 MCG TABLET PO (06:27)
[2023-01-15] MEDS: Magnesium Hydrox/Alum Hydrox 30 ML ORAL.SUSP PO (06:42)
[2023-01-15] MEDS: Cariprazine HCl 3 MG CAPSULE 6 MG PO (08:11)
[2023-01-15] MEDS: Loratadine 10 MG TABLET PO (08:12)
[2023-01-15] MEDS: Benztropine Mesylate 0.5 MG TABLET PO ×2 (08:12→21:11)
[2023-01-15] MEDS: Gabapentin 300 MG CAPSULE PO ×3 (08:12→21:12)
[2023-01-15] MEDS: Hydrocortisone 1 % Cream 28.35 GM TUBE 1 APPL TOPICAL (08:13)
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
[2023-01-15 09:59] VITALS: BP 107/64; PULSE 105; RESP 16; TEMP 36.4; O2SAT 97
[2023-01-15] MEDS: QUEtiapine Fumarate 50 MG TABLET PO ×2 (10:15→15:54)
[2023-01-15 15:48] LABS: MANUAL DIFF FLAG NO
[2023-01-15 15:51] LABS: Basophils Percent Auto 0.6 % (0-2); Eosinophils Percent Auto 0.4 % (0-4); Hematocrit 34.5 % (37.0-47.0); Hemoglobin 11.4 g/dl (12.0-16.0); Imm Gran Abs Auto 0.01 X10*3/uL (0.00-0.03); Imm Gran Pct Auto 0.2 % (0.0-0.4); Lymphocytes Absolute Auto 1.4 X10*3/uL (1.2-4.9); Lymphocytes Percent Auto 27.9 % (20-40); Mean Corpuscular Hemoglobin 33.5 pg (27.0-33.0); Mean Corpuscular Volume 101.5 fL (80.0-98.0); Mean Platelet Volume 10.3 fL (9.4-12.3); Monocytes Absolute Auto 0.4 X10*3/uL (0.1-1.2); Monocytes Percent Auto 8.1 % (2-11); Neutrophils Absolute Auto 3.1 x10*3/uL (2.0-8.3); Neutrophils Percent Auto 62.8 % (45-73); Platelet Count 170 X10*3/uL (160-400); Red Cell Distribution Width 12.9 % (11.0-16.0); White Blood Count 4.9 X10*3/uL (4.8-10.8)
[2023-01-15 16:00] LABS: Ammonia 33 umol/L (13-55)
[2023-01-15 16:09] LABS: Alanine Aminotransferase 78 U/L (0-31); Albumin Level 4.1 g/dL (3.5-5.0); Alkaline Phosphatase 78 U/L (39-117); Anion Gap 15 (12-20); Aspartate Amino Transferase 44 U/L (5-31); Bilirubin Direct 0.2 mg/dL (0.0-0.5); Bilirubin Total 0.3 mg/dL (0.0-1.0); Blood Urea Nitrogen 16 mg/dL (9-16); Carbon Dioxide 21 mmol/L (22-29); Chloride 108 mmol/L (96-108); Creatinine Clr Calc Pharmacy 78.5; Estimated Glomerular Filt Rate > 60; Glucose Random 91 mg/dL (60-115); Potassium 4.2 mmol/L (3.3-5.1); Sodium 140 mmol/L (135-145); Total Protein 7.6 g/dL (6.5-8.0)
[2023-01-15 16:13] LABS: Blood Urea Nitrogen 15 mg/dL (9-16)
[2023-01-15 17:24] LABS: Free T4 (Free Thyroxine) 1.01 ng/dL (0.71-1.85)
[2023-01-15 19:50] VITALS: BP 135/86; PULSE 111; RESP 18; TEMP 36.3; O2SAT 97
[2023-01-15] MEDS: traZODone HCL 50 MG TABLET PO (21:11)
[2023-01-15] MEDS: QUEtiapine Fumarate 200 MG TABLET PO (21:11)
[2023-01-15] MEDS: Atorvastatin Calcium 10 MG TABLET PO (21:12)
[2023-01-16] MEDS: Nicotine Polacrilex 2 MG GUM 4 MG BUCCAL ×7 (01:24→20:31)
[2023-01-16] MEDS: Magnesium Hydrox/Alum Hydrox 30 ML ORAL.SUSP PO ×2 (01:24→12:30)
[2023-01-16] MEDS: Levothyroxine Sodium 100 MCG TABLET PO (05:39)
[2023-01-16 07:00] VITALS: BMI 25.0
[2023-01-16 08:45] VITALS: BP 170/70; PULSE 93; RESP 20; TEMP 36.3; O2SAT 100
[2023-01-16] MEDS: Cariprazine HCl 3 MG CAPSULE 6 MG PO (08:48)
[2023-01-16] MEDS: Loratadine 10 MG TABLET PO (08:49)
[2023-01-16] MEDS: Hydrocortisone 1 % Cream 28.35 GM TUBE 1 APPL TOPICAL ×2 (08:49→20:59)
[2023-01-16] MEDS: Benztropine Mesylate 0.5 MG TABLET PO ×2 (08:49→20:58)
[2023-01-16] MEDS: Gabapentin 300 MG CAPSULE PO ×3 (08:49→20:58)
[2023-01-16 10:13] LABS: Thyroid Peroxidase Antibodies 5 IU/mL (<9)
[2023-01-16] MEDS: QUEtiapine Fumarate 100 MG TABLET PO ×2 (10:33→15:40)
--- NOTE | 2023-01-16 11:24 | PM.EVENT ---
Event Note Date of Service: 01/16/23 Event Note: Medical consult for patient with low TSH. Patient's TSH 0.10 with free T4 WNL at 1.01. The patient is currently on levothyroxine 100 mcg daily. Will reduce levothyroxine to 88 mcg daily. Patient should have TSH rechecked outpatient in 3 months. If TSH continues to be low levothyroxine should be further reduced to 75 mcg daily and TSH levels checked in an additional 3 months time. Thank you for allowing us to participate in the care of this patient. Signing off at this time. Please let us know if there are any acute complaints or questions. Time Spent With Patient Time: Total time managing care of this patient today ____ minutes.
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
[2023-01-16 20:15] VITALS: BP 132/86; PULSE 101; RESP 18; TEMP 36.2; O2SAT 97
[2023-01-16] MEDS: QUEtiapine Fumarate 200 MG TABLET PO (20:58)
[2023-01-16] MEDS: traZODone HCL 50 MG TABLET PO (20:58)
[2023-01-16] MEDS: Atorvastatin Calcium 10 MG TABLET PO (20:58)
[2023-01-17] MEDS: Nicotine Polacrilex 2 MG GUM 4 MG BUCCAL ×9 (02:08→22:24)
[2023-01-17] MEDS: Levothyroxine Sodium 88 MCG TABLET PO (07:15)
[2023-01-17 08:50] VITALS: BP 111/72; PULSE 105; RESP 20; TEMP 35.9; O2SAT 99
[2023-01-17] MEDS: Loratadine 10 MG TABLET PO (08:53)
[2023-01-17] MEDS: Gabapentin 300 MG CAPSULE PO ×3 (08:53→21:30)
[2023-01-17] MEDS: Benztropine Mesylate 0.5 MG TABLET PO ×2 (08:54→21:30)
[2023-01-17] MEDS: Cariprazine HCl 3 MG CAPSULE 6 MG PO (08:54)
[2023-01-17] MEDS: Hydrocortisone 1 % Cream 28.35 GM TUBE 1 APPL TOPICAL ×2 (08:55→21:31)
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
[2023-01-17] MEDS: QUEtiapine Fumarate 100 MG TABLET PO ×2 (11:23→16:00)
[2023-01-17] MEDS: Magnesium Hydrox/Alum Hydrox 30 ML ORAL.SUSP PO ×2 (12:14→21:31)
[2023-01-17 21:29] VITALS: BP 141/81; PULSE 103; RESP 16; TEMP 36; O2SAT 99
[2023-01-17] MEDS: traZODone HCL 50 MG TABLET PO (21:30)
[2023-01-17] MEDS: QUEtiapine Fumarate 200 MG TABLET PO (21:30)
[2023-01-17] MEDS: Propranolol HCL 10 MG TABLET PO (21:30)
[2023-01-17] MEDS: Atorvastatin Calcium 10 MG TABLET PO (21:31)
[2023-01-18] MEDS: Nicotine Polacrilex 2 MG GUM 4 MG BUCCAL ×6 (03:25→18:44)
[2023-01-18] MEDS: Levothyroxine Sodium 88 MCG TABLET PO (05:34)
[2023-01-18] MEDS: Magnesium Hydrox/Alum Hydrox 30 ML ORAL.SUSP PO (06:22)
[2023-01-18] MEDS: Cariprazine HCl 3 MG CAPSULE 6 MG PO (08:32)
[2023-01-18] MEDS: Gabapentin 300 MG CAPSULE PO ×3 (08:32→20:55)
[2023-01-18] MEDS: Benztropine Mesylate 0.5 MG TABLET PO ×2 (08:32→20:55)
[2023-01-18] MEDS: Loratadine 10 MG TABLET PO (08:32)
[2023-01-18] MEDS: Propranolol HCL 10 MG TABLET PO ×3 (08:32→20:55)
[2023-01-18 09:32] VITALS: BP 116/74; PULSE 101; RESP 20; TEMP 36.2; O2SAT 96
[2023-01-18] MEDS: QUEtiapine Fumarate 100 MG TABLET PO (11:34)
[2023-01-18] MEDS: Omeprazole 20 MG CAPSULE.DR PO (16:53)
[2023-01-18 18:00] VITALS: BP 121/74; PULSE 98; RESP 16; TEMP 36.1; O2SAT 96
[2023-01-18 20:52] VITALS: BP 137/87; PULSE 95; RESP 18; TEMP 36; O2SAT 97
[2023-01-18] MEDS: QUEtiapine Fumarate 200 MG TABLET PO (20:55)
[2023-01-18] MEDS: Hydrocortisone 1 % Cream 28.35 GM TUBE 1 APPL TOPICAL (20:55)
[2023-01-18] MEDS: Atorvastatin Calcium 10 MG TABLET PO (20:55)
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
[2023-01-19] MEDS: Nicotine Polacrilex 2 MG GUM 4 MG BUCCAL ×9 (00:06→23:24)
[2023-01-19] MEDS: Levothyroxine Sodium 88 MCG TABLET PO (05:11)
[2023-01-19 08:06] VITALS: BP 137/86; PULSE 86; RESP 20; TEMP 36.1; O2SAT 98
[2023-01-19] MEDS: Omeprazole 20 MG CAPSULE.DR PO ×2 (08:26→17:13)
[2023-01-19] MEDS: Cariprazine HCl 3 MG CAPSULE 6 MG PO (08:26)
[2023-01-19] MEDS: Benztropine Mesylate 0.5 MG TABLET PO ×2 (08:26→20:41)
[2023-01-19] MEDS: Propranolol HCL 10 MG TABLET PO ×3 (08:26→20:40)
[2023-01-19] MEDS: Gabapentin 300 MG CAPSULE PO ×3 (08:26→20:40)
[2023-01-19] MEDS: Loratadine 10 MG TABLET PO (08:27)
[2023-01-19] MEDS: Hydrocortisone 1 % Cream 28.35 GM TUBE 1 APPL TOPICAL (08:44)
[2023-01-19] MEDS: QUEtiapine Fumarate 100 MG TABLET PO ×2 (11:42→17:13)
--- NOTE | 2023-01-19 16:02 | P.PNPSI_ITS ---
Subjective Subjective Date of Service: 01/19/23 Reason For Visit: Depression Subjective Notes: Conditional Voluntary Guardianship: No Medical Problems Affecting Mental Status: Yes Interim History: Patient seen in psychiatric follow-up. Patient seems somewhat improved on Seroquel and Vraylar. Continues to absolutely refuse Depakote lithium Tegretol. She has however been excepting Vraylar and Seroquel on a consistent basis Mental Status Exam Mental Status Exam Narrative: Patient casually dressed out in the milieu has been accepting treatment. Seems less intense and reactive not grossly combative or irritable impulse control seems improved seems generally appropriate in interactions with others much decreased pacing and agitation Diagnostics Vital Signs (24Hr): Vital Signs - 24 hr 01/18/23 18:00 01/18/23 20:52 01/19/23 08:06 Temperature 97.0 F 96.8 F 96.9 F Pulse Rate 98 95 86 Respiratory Rate 16 18 20 Blood Pressure 121/74 137/87 137/86 Pulse Oximetry 96 97 98 Oxygen Delivery Method Room Air Room Air Room Air BMI result Body Mass Index 25.0 Labs 01/15/23 15:43 01/15/23 15:43 Medications Medications Current Medications Acetaminophen (Acetaminophen 325 Mg Tablet) 650 mg PO Q6H PRN PRN Reason: Headache/Pain Mild Scale (1-3) Al Hydroxide/Mg Hydroxide (Magnesium Hydrox/Alum Hydrox 30 Ml Oral.Susp) 30 ml PO Q6H PRN PRN Reason: Heartburn/Nausea Last Admin: 01/18/23 06:22 Dose: 30 ml Atorvastatin Calcium (Atorvastatin Calcium 10 Mg Tablet) 10 mg PO BEDTIME [facility] Last Admin: 01/18/23 20:55 Dose: 10 mg Benztropine Mesylate (Benztropine Mesylate 0.5 Mg Tablet) 0.5 mg PO BID [facility] Last Admin: 01/19/23 08:26 Dose: 0.5 mg Cariprazine (Cariprazine Hcl 3 Mg Capsule) 6 mg PO DAILY [facility] Last Admin: 01/19/23 08:26 Dose: 6 mg Gabapentin (Gabapentin 300 Mg Capsule) 300 mg PO TID [facility] Last Admin: 01/19/23 15:31 Dose: 300 mg Hydrocortisone (Hydrocortisone 1 % Cream 28.35 Gm Tube) 1 appl TOPICAL TID [facility]; Protocol Last Admin: 01/19/23 15:38 Dose: Not Given Levothyroxine Sodium (Levothyroxine Sodium 88 Mcg Tablet) 88 mcg PO DAILY@0600 [facility] Last Admin: 01/19/23 05:11 Dose: 88 mcg Loratadine (Loratadine 10 Mg Tablet) 10 mg PO DAILY [facility] Last Admin: 01/19/23 08:27 Dose: 10 mg Magnesium Hydroxide (Milk Of Magnesia 30 Ml Oral.Susp) 30 ml PO DAILY PRN PRN Reason: Constipation Nicotine Polacrilex (Nicotine Polacrilex 2 Mg Gum) 4 mg BUCCAL Q2H PRN PRN Reason: Nicotine Cravings Last Admin: 01/19/23 15:31 Dose: 4 mg Omeprazole (Omeprazole 20 Mg Capsule.Dr) 20 mg PO BID@0630,1630 [facility] Last Admin: 01/19/23 08:26 Dose: 20 mg Propranolol HCl (Propranolol Hcl 10 Mg Tablet) 10 mg PO TID [facility]; Protocol Last Admin: 01/19/23 15:31 Dose: 10 mg Quetiapine Fumarate (Quetiapine Fumarate 200 Mg Tablet) 200 mg PO BEDTIME [facility] Last Admin: 01/18/23 20:55 Dose: 200 mg Quetiapine Fumarate (Quetiapine Fumarate 100 Mg Tablet) 100 mg PO BID@1100,1600 [facility] Last Admin: 01/19/23 11:42 Dose: 100 mg Allergies Allergies Allergy/AdvReac Type Severity Reaction Status Date / Time No Known Allergies Allergy Verified 12/31/22 18:03 Assessment & Plan Assessment & Plan (1) Bipolar 1 disorder: Status: Acute Code(s): F31.9 - Bipolar disorder, unspecified (2) PTSD (post-traumatic stress disorder): Status: Acute Code(s): F43.10 - Post-traumatic stress disorder, unspecified (3) Alcohol abuse: Status: Acute Code(s): F10.10 - Alcohol abuse, uncomplicated Plan Patient is a 57 year old female with hx of Bipolar d/p, PTSD and ETOH abuse who arrived via EMS to [facility] ER d/t passive suicidal ideation secondary to increased depressive symptoms from homelessness and alcohol use. Plan: CV 15 minute safety checks CIWA DC Wellbutrin Start: Vraylar 1.5mg PO daily Seroquel 25mg PO BID PRN Obtain collateral Referral to outpatient substance abuse program? Referral to domestic violence program? 01/03: Patient presents calm, cooperative, less rapid speech. Continues circumstantial and long winded in responses. She reports feeling anxious, depressed and hopeless d/t being worried about what's next after the hospital . Patient stated, I know my drinking is a problem but I need 1:1 therapy to fix the root cause of my drinking . Patient reports she does not want us speaking with her daughter. Pt reports feeling hopeful about the new medication . Vraylar increased to 3mg PO daily. 01/04: Continue current treatment plan. 01/05: Lower Vraylar to 1.5 mg daily. DC CIWA. 01/06: Continue current regimen and plans. 01/07: Patient reports feeling better today. Patient stated, no other meds have worked but I feel like the Vrylar is helping . Patient presents with rapid and pressured speech and circumstantial thought content. Pt stated, I hate that if I dance, sing or talk people think I'm hypomanic but maybe the medication is helping me feel less depressed and I'm in a better environment . Patient reports she usually have no one to talk to and now that I do, I want to make sure I get everything out . Patient states she would still like to go to a program after being hospitalized. Denies SI/HI/VH/AH. Vrylar increased to 3mg PO daily. Start Cogentin 0.5mg PO BID. 01/08: Patient reports feeling better today. Patient presents less rapid and pressured; with organized thought process. Pt stated, I'm enjoying the clients and staff here but I'm trying to focus on the future now. I fully know I abused alcohol and I'm open to getting treatment and dig deeper . Pt denies any side effects from increase in Vrylar; will continue to monitor. 01/09: Patient reports feeling good today. Patient presents less rapid and pressured; with organized thought process. Denies any side effects from increase in Vrylar; will continue to monitor. Denies SI/HI/VH/AH. 01/10: Patient reports feeling good today. Patients speech is normal rate, not pressured today; with organized thought process. Denies any side effects from increase in Vrylar; will continue to monitor. Denies SI/HI/VH/AH. Patient is hoping to be discharged next week to a step down program. Vraylar increased to 4.5mg PO daily 01/12: no changes 01/13: Patient presents with rapid and pressured speech; circumstantial. Patient reports she feels like she is doing good . Pt stated, I know I'm talking fast and a lot but it's because I just need a therapist to get everything out . Patient reports she does not want to take any mood stabilizers because I've tried them in the past and they don't work . Patient agreed to increase in Vraylar and Seroquel. Social with peers and staff, attending groups. Increased Vraylar to 6mg PO daily. Scheduled Seroquel 25mg PO BID. 01/14: Rapid and pressured speech; circumstantial. Pt stated, I need to allow myself to slow down. It's my personality and babbling is my anxiety. I feel like the medication is helping me slow down . denies any side effects from increase in medications. Will increase Seroquel to 50mg PO BID. Pt continues to refuse any other suggested medications. 01/15: Patient continues to present with rapid and pressured speech however slower than yesterday; circumstantial. Reports having some anxiety throughout the day. Pt stated, I know I have to watch what I say here because I joke about alcohol and then everyone takes it seriously. I have no desire to drink. I want to go to a program even though I am grateful of this place . Patient observed calmer in the evening, walking unit hallway while having headphones on and listening to music. She was able to recognize when going off topic today and redirect herself back. Continue current tx plan. 01/16: Patient presents with less rapid and pressured speech, organized;less circumstantial. Reports having some anxiety throughout the day. Pt stated, I want to go to [facility]. I think I would benefit and I would also be able to contribute . RN/MHC's report she has been attending some groups. Pt agreed to increase in Seroquel. Seroquel increased to 100mg PO BID. 01/17: Patient presents with less rapid and pressured speech, organized;less circumstantial. Patient reports she is hoping to either get into a program or respite but if not then I'll just go to a hotel . Patient continues to report some anxiety; discussed propranolol, risks/benefits reviewed. Start propranolol 10mg PO TID 01/18/2023 Patient remains defended regarding bipolar diagnosis but has been accepting medication treatment Would benefit from long-term acceptance continue of Vraylar seems to benefit from addition of Seroquel. Given literature regarding bipolar medication treatment continue discharge planning referral to aftercare programming when somewhat more stable would benefit from dual diagnosis program 01/19/2023 Patient has been accepting medication treatment not grossly combative seems significantly less irritable and agitated and less pressured. Would benefit from dual dx tx not open to dialogue regarding other medication. Trying to firm up a clear discharge plan Reason for continued inpatient stay Substantial Risk for: inability to function and rapid decompensation Time Spent With Patient Time: Total time managing care of this patient today ____ minutes.
[2023-01-19 20:15] VITALS: BP 133/80; PULSE 94; RESP 18; TEMP 36.3; O2SAT 98
[2023-01-19] MEDS: QUEtiapine Fumarate 200 MG TABLET PO (20:40)
[2023-01-19] MEDS: Atorvastatin Calcium 10 MG TABLET PO (20:41)
[2023-01-20] MEDS: Nicotine Polacrilex 2 MG GUM 4 MG BUCCAL ×8 (05:00→21:23)
[2023-01-20] MEDS: Levothyroxine Sodium 88 MCG TABLET PO (05:00)
[2023-01-20] MEDS: Omeprazole 20 MG CAPSULE.DR PO ×2 (05:54→16:11)
[2023-01-20 08:17] VITALS: BP 126/80; PULSE 103; RESP 16; TEMP 36.2; O2SAT 98
[2023-01-20] MEDS: Loratadine 10 MG TABLET PO (08:19)
[2023-01-20] MEDS: Cariprazine HCl 3 MG CAPSULE 6 MG PO (08:19)
[2023-01-20] MEDS: Benztropine Mesylate 0.5 MG TABLET PO ×2 (08:19→21:21)
[2023-01-20] MEDS: Gabapentin 300 MG CAPSULE PO ×3 (08:19→21:21)
[2023-01-20] MEDS: Propranolol HCL 10 MG TABLET PO ×3 (08:20→21:21)
[2023-01-20] MEDS: QUEtiapine Fumarate 25 MG TABLET 75 MG PO ×2 (12:44→16:11)
--- NOTE | 2023-01-20 13:59 | HO.PSYCHPN ---
Subjective Subjective Date of Service: 01/20/23 Reason For Visit: Depression Subjective Notes: Conditional Voluntary Interim History: Reviewed with . Patient presents less rapid and pressured, she is organized but can be circumstantial depending on the topic. Pt states she is feeling the best I felt since I came in here . She is requesting for Seroquel to be decreased d/t drowsiness during the day. Dose decreased to 75mg PO BID. Patient hopeful regarding being accepted into [facility]. Observed walking unit hallway while listening to music on headphones. Medication Compliance: Yes Side effects from medications: No Attending Groups: Intermittent Review of Systems Constitutional: Reports as per HPI Eyes: Reports as per HPI Reports as per HPI Cardiovascular: Reports as per HPI Respiratory: Reports as per HPI Gastrointestinal: Reports as per HPI Genitourinary: Reports as per HPI Musculoskeletal: Reports as per HPI Skin/Breast: Reports as per HPI Reports as per HPI Psychiatric: Reports as per HPI Endocrine: Reports as per HPI Hematologic/Lymphatic: Reports as per HPI Allergic/Immunologic: Reports as per HPI Mental Status Exam Mental Status Exam Narrative: Pt is alert and oriented; behavior is cooperative, friendly; dressed in casual attire; mood is described as good ; eye contact appropriate; Speech is less rapid, and not pressured; no psychomotor agitation/retardation present; thought process is organized however can be circumstantial depending on topic; Thought content is on tx; otherwise pertinent to relevant topics and without any delusional content, paranoid ideations or grandiosity; denies SI/HI. There is no evidence of perceptual disturbance. Patients insight and judgment are poor but improving. Diagnostics Vital Signs (24Hr): Vital Signs - 24 hr 01/19/23 20:15 01/20/23 08:17 Temperature 97.3 F 97.1 F Pulse Rate 94 103 H Respiratory Rate 18 16 Blood Pressure 133/80 126/80 Pulse Oximetry 98 98 Oxygen Delivery Method Room Air Room Air BMI result Body Mass Index 25.0 Labs 01/15/23 15:43 01/15/23 15:43 Medications Medications Current Medications Acetaminophen (Acetaminophen 325 Mg Tablet) 650 mg PO Q6H PRN PRN Reason: Headache/Pain Mild Scale (1-3) Al Hydroxide/Mg Hydroxide (Magnesium Hydrox/Alum Hydrox 30 Ml Oral.Susp) 30 ml PO Q6H PRN PRN Reason: Heartburn/Nausea Last Admin: 01/18/23 06:22 Dose: 30 ml Atorvastatin Calcium (Atorvastatin Calcium 10 Mg Tablet) 10 mg PO BEDTIME [facility] Last Admin: 01/19/23 20:41 Dose: 10 mg Benztropine Mesylate (Benztropine Mesylate 0.5 Mg Tablet) 0.5 mg PO BID [facility] Last Admin: 01/20/23 08:19 Dose: 0.5 mg Cariprazine (Cariprazine Hcl 3 Mg Capsule) 6 mg PO DAILY [facility] Last Admin: 01/20/23 08:19 Dose: 6 mg Gabapentin (Gabapentin 300 Mg Capsule) 300 mg PO TID [facility] Last Admin: 01/20/23 08:19 Dose: 300 mg Hydrocortisone (Hydrocortisone 1 % Cream 28.35 Gm Tube) 1 appl TOPICAL TID [facility]; Protocol Last Admin: 01/20/23 08:18 Dose: Not Given Levothyroxine Sodium (Levothyroxine Sodium 88 Mcg Tablet) 88 mcg PO DAILY@0600 [facility] Last Admin: 01/20/23 05:00 Dose: 88 mcg Loratadine (Loratadine 10 Mg Tablet) 10 mg PO DAILY [facility] Last Admin: 01/20/23 08:19 Dose: 10 mg Magnesium Hydroxide (Milk Of Magnesia 30 Ml Oral.Susp) 30 ml PO DAILY PRN PRN Reason: Constipation Nicotine Polacrilex (Nicotine Polacrilex 2 Mg Gum) 4 mg BUCCAL Q2H PRN PRN Reason: Nicotine Cravings Last Admin: 01/20/23 12:44 Dose: 4 mg Omeprazole (Omeprazole 20 Mg Capsule.Dr) 20 mg PO BID@0630,1630 [facility] Last Admin: 01/20/23 05:54 Dose: 20 mg Propranolol HCl (Propranolol Hcl 10 Mg Tablet) 10 mg PO TID [facility]; Protocol Last Admin: 01/20/23 08:20 Dose: 10 mg Quetiapine Fumarate (Quetiapine Fumarate 200 Mg Tablet) 200 mg PO BEDTIME [facility] Last Admin: 01/19/23 20:40 Dose: 200 mg Quetiapine Fumarate (Quetiapine Fumarate 25 Mg Tablet) 75 mg PO BID@1100,1600 [facility] Last Admin: 01/20/23 12:44 Dose: 75 mg Allergies Allergies Allergy/AdvReac Type Severity Reaction Status Date / Time No Known Allergies Allergy Verified 12/31/22 18:03 Assessment & Plan Assessment & Plan (1) Bipolar 1 disorder: Status: Acute Code(s): F31.9 - Bipolar disorder, unspecified (2) PTSD (post-traumatic stress disorder): Status: Acute Code(s): F43.10 - Post-traumatic stress disorder, unspecified (3) Alcohol abuse: Status: Acute Code(s): F10.10 - Alcohol abuse, uncomplicated Plan Patient is a 57 year old female with hx of Bipolar d/p, PTSD and ETOH abuse who arrived via EMS to [facility] ER d/t passive suicidal ideation secondary to increased depressive symptoms from homelessness and alcohol use. Plan: CV 15 minute safety checks CIWA DC Wellbutrin Start: Vraylar 1.5mg PO daily Seroquel 25mg PO BID PRN Obtain collateral Referral to outpatient substance abuse program? Referral to domestic violence program? 01/03: Patient presents calm, cooperative, less rapid speech. Continues circumstantial and long winded in responses. She reports feeling anxious, depressed and hopeless d/t being worried about what's next after the hospital . Patient stated, I know my drinking is a problem but I need 1:1 therapy to fix the root cause of my drinking . Patient reports she does not want us speaking with her daughter. Pt reports feeling hopeful about the new medication . Vraylar increased to 3mg PO daily. 01/04: Continue current treatment plan. 01/05: Lower Vraylar to 1.5 mg daily. DC CIWA. 01/06: Continue current regimen and plans. 01/07: Patient reports feeling better today. Patient stated, no other meds have worked but I feel like the Vrylar is helping . Patient presents with rapid and pressured speech and circumstantial thought content. Pt stated, I hate that if I dance, sing or talk people think I'm hypomanic but maybe the medication is helping me feel less depressed and I'm in a better environment . Patient reports she usually have no one to talk to and now that I do, I want to make sure I get everything out . Patient states she would still like to go to a program after being hospitalized. Denies SI/HI/VH/AH. Vrylar increased to 3mg PO daily. Start Cogentin 0.5mg PO BID. 01/08: Patient reports feeling better today. Patient presents less rapid and pressured; with organized thought process. Pt stated, I'm enjoying the clients and staff here but I'm trying to focus on the future now. I fully know I abused alcohol and I'm open to getting treatment and dig deeper . Pt denies any side effects from increase in Vrylar; will continue to monitor. 01/09: Patient reports feeling good today. Patient presents less rapid and pressured; with organized thought process. Denies any side effects from increase in Vrylar; will continue to monitor. Denies SI/HI/VH/AH. 01/10: Patient reports feeling good today. Patients speech is normal rate, not pressured today; with organized thought process. Denies any side effects from increase in Vrylar; will continue to monitor. Denies SI/HI/VH/AH. Patient is hoping to be discharged next week to a step down program. Vraylar increased to 4.5mg PO daily 01/12: no changes 01/13: Patient presents with rapid and pressured speech; circumstantial. Patient reports she feels like she is doing good . Pt stated, I know I'm talking fast and a lot but it's because I just need a therapist to get everything out . Patient reports she does not want to take any mood stabilizers because I've tried them in the past and they don't work . Patient agreed to increase in Vraylar and Seroquel. Social with peers and staff, attending groups. Increased Vraylar to 6mg PO daily. Scheduled Seroquel 25mg PO BID. 01/14: Rapid and pressured speech; circumstantial. Pt stated, I need to allow myself to slow down. It's my personality and babbling is my anxiety. I feel like the medication is helping me slow down . denies any side effects from increase in medications. Will increase Seroquel to 50mg PO BID. Pt continues to refuse any other suggested medications. 01/15: Patient continues to present with rapid and pressured speech however slower than yesterday; circumstantial. Reports having some anxiety throughout the day. Pt stated, I know I have to watch what I say here because I joke about alcohol and then everyone takes it seriously. I have no desire to drink. I want to go to a program even though I am grateful of this place . Patient observed calmer in the evening, walking unit hallway while having headphones on and listening to music. She was able to recognize when going off topic today and redirect herself back. Continue current tx plan. 01/16: Patient presents with less rapid and pressured speech, organized;less circumstantial. Reports having some anxiety throughout the day. Pt stated, I want to go to [facility]. I think I would benefit and I would also be able to contribute . RN/MHC's report she has been attending some groups. Pt agreed to increase in Seroquel. Seroquel increased to 100mg PO BID. 01/17: Patient presents with less rapid and pressured speech, organized;less circumstantial. Patient reports she is hoping to either get into a program or respite but if not then I'll just go to a hotel . Patient continues to report some anxiety; discussed propranolol, risks/benefits reviewed. Start propranolol 10mg PO TID 01/18: Patient remains defended regarding bipolar diagnosis but has been accepting medication treatment Would benefit from long-term acceptance continue of Vraylar seems to benefit from addition of Seroquel. Given literature regarding bipolar medication treatment continue discharge planning referral to aftercare programming when somewhat more stable would benefit from dual diagnosis program. 01/19: Patient has been accepting medication treatment not grossly combative seems significantly less irritable and agitated and less pressured. Would benefit from dual dx tx not open to dialogue regarding other medication. Trying to firm up a clear discharge plan. 01/20: Patient presents less rapid and pressured, she is organized but can be circumstantial depending on the topic. Pt states she is feeling the best I felt since I came in here . She is requesting for Seroquel to be decreased d/t drowsiness during the day. Dose decreased to 75mg PO BID. Patient hopeful regarding being accepted into [place] respite. Observed walking unit hallway while listening to music on headphones. Patient educated on: diagnosis, medication risk/benefits and therapeutic strategies Informed Consent: understands Reason for continued inpatient stay Substantial Risk for: med/psych decompensation Time Spent With Patient Time: Total time managing care of this patient today _30___ minutes.
[2023-01-20 14:50] VITALS: BP 118/74; PULSE 98; RESP 20; TEMP 36.8; O2SAT 96
[2023-01-20] MEDS: Milk of Magnesia 30 ML ORAL.SUSP PO (18:28)
[2023-01-20 21:10] VITALS: BP 111/75; PULSE 98; RESP 18; TEMP 36; O2SAT 98
[2023-01-20] MEDS: QUEtiapine Fumarate 200 MG TABLET PO (21:21)
[2023-01-20] MEDS: Atorvastatin Calcium 10 MG TABLET PO (21:21)
[2023-01-21] MEDS: Nicotine Polacrilex 2 MG GUM 4 MG BUCCAL ×6 (02:41→21:11)
[2023-01-21] MEDS: Levothyroxine Sodium 88 MCG TABLET PO (07:57)
[2023-01-21 08:37] VITALS: BP 117/74; PULSE 91; RESP 16; TEMP 36.1; O2SAT 99
[2023-01-21] MEDS: Omeprazole 20 MG CAPSULE.DR PO ×2 (08:46→16:05)
[2023-01-21] MEDS: Benztropine Mesylate 0.5 MG TABLET PO ×2 (08:47→21:10)
[2023-01-21] MEDS: Loratadine 10 MG TABLET PO (08:47)
[2023-01-21] MEDS: Gabapentin 300 MG CAPSULE PO ×3 (08:47→21:11)
[2023-01-21] MEDS: Propranolol HCL 10 MG TABLET PO ×3 (08:47→21:10)
[2023-01-21] MEDS: Cariprazine HCl 3 MG CAPSULE 6 MG PO (08:47)
[2023-01-21] MEDS: QUEtiapine Fumarate 25 MG TABLET 75 MG PO ×2 (10:58→16:05)
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
[2023-01-21 14:58] VITALS: BP 139/76; PULSE 86
[2023-01-21 21:00] VITALS: BP 130/76; PULSE 16; RESP 16; TEMP 36.2; O2SAT 99
[2023-01-21] MEDS: Atorvastatin Calcium 10 MG TABLET PO (21:10)
[2023-01-21] MEDS: QUEtiapine Fumarate 200 MG TABLET PO (21:10)
[2023-01-22] MEDS: Nicotine Polacrilex 2 MG GUM 4 MG BUCCAL ×3 (02:26→09:25)
[2023-01-22 06:00] VITALS: BP 117/77; PULSE 91; RESP 16; TEMP 36.2; O2SAT 99
[2023-01-22] MEDS: Levothyroxine Sodium 88 MCG TABLET PO (06:08)
[2023-01-22] MEDS: Benztropine Mesylate 0.5 MG TABLET PO (08:09)
[2023-01-22] MEDS: Cariprazine HCl 3 MG CAPSULE 6 MG PO (08:10)
[2023-01-22] MEDS: Omeprazole 20 MG CAPSULE.DR PO (08:10)
[2023-01-22] MEDS: Propranolol HCL 10 MG TABLET PO (08:10)
[2023-01-22] MEDS: Loratadine 10 MG TABLET PO (08:10)
[2023-01-22] MEDS: Gabapentin 300 MG CAPSULE PO (08:10)
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
== END 2023-01-22 10:55 | disposition home or self-care (01) | DRG 885 ==
LOC: HO.ED 01-01 13:07 → HO.PADLT16 01-01 16:16
PROVIDERS: Admitting Provider Psychiatry & Neurology Psychiatry; Emergency Provider Emergency Medicine; Responsible Provider Registered Nurse; Visit Provider Psychiatry & Neurology Psychiatry
DX: F31.9 Bipolar disorder, unspecified (principal); R45.851 Suicidal ideations; F43.10 Post-traumatic stress disorder, unspecified; F10.10 Alcohol abuse, uncomplicated; Z20.822 Contact with and (suspected) exposure to COVID-19; Y90.6 Blood alcohol level of 120-199 mg/100 ml; Z23 Encounter for immunization; Z87.891 Personal history of nicotine dependence; Z79.890 Hormone replacement therapy; Z79.899 Other long term (current) drug therapy
CPT/HCPCS: 36415; 80053; 80076; 80143; 80179; 80307; 81001; 82140; 82248; 84439; 84443; 84520; 85025; 86376; 87086; 87635; 90686; 93005; 99285; S9485

== ENCOUNTER → 2023-01-01 16:06 | Outpatient (BNV) | payer OTHER, MEDICAID, SELFPAY | PROVIDERS: Admitting Provider Psychiatry & Neurology Psychiatry; Emergency Provider Emergency Medicine; Responsible Provider Registered Nurse; Visit Provider Psychiatry & Neurology Psychiatry | DX: F31.4 Bipolar disorder, current episode depressed, severe, without psychotic features (principal); F43.11 Post-traumatic stress disorder, acute; F10.10 Alcohol abuse, uncomplicated | CPT/HCPCS: 99231; 99232; 99238 ==

== ENCOUNTER → 2023-01-01 16:06 | Outpatient (BNV) | payer OTHER, SELFPAY | PROVIDERS: Admitting Provider Psychiatry & Neurology Psychiatry; Emergency Provider Emergency Medicine; Responsible Provider Registered Nurse; Visit Provider Psychiatry & Neurology Psychiatry | DX: F31.9 Bipolar disorder, unspecified (principal); F43.10 Post-traumatic stress disorder, unspecified; F10.10 Alcohol abuse, uncomplicated | CPT/HCPCS: 90792; 99231; 99232 ==